=== PATIENT | female | born 1960 | race Caucasian/White ===

== ENCOUNTER 2017-01-06 19:01 | Inpatient (IN) | payer OTHER ==
[2017-01-06] VITALS (8 sets, daily range): BP systolic 131–160; BP diastolic 76–99; PULSE 72–89; RESP 16–24; O2SAT 94–98
[~2017-01-06] VITALS: Ht 160 cm; Wt 93.3 kg
--- NOTE | 2017-01-06 19:37 | ED.REPORT ---
HPI-Chest Pain 40 and Over Date of Service Jan 06, 2017 ED Provider: Donnell Alford DO Pt is a 56 year old female with a hx of a brain aneurysm, LoeysDietz syndrome ( LDS), and TIAs presenting to the ED complaining of severe sudden onset chest pain and pressure onset around 1800 tonight radiating down her right arm, then down both arms, now only down her left arm. Associated symptoms include diaphoresis, and nausea. Denies SOB, vomiting, or back pain. She states that she thought her symptoms were due to indigestion so she had some baking soda with no relief. She has a hx of a ruptured brain aneurysm at 21 years old, and currently has 2 brain aneurysms that are being monitored. Nursing Notes Stated Complaint: CHEST PAIN Chief Complaint: Chest Pain Nursing Notes Reviewed: Yes Allergies: Coded Allergies: No Known Allergies (Unverified Allergy, Unknown, 01/06/17) Scheduled Aspirin Chew (Aspirin Chew) 81 Mg Chew 81 MG PO DAILY Atorvastatin Calcium (Atorvastatin Calcium) 40 Mg Tablet 40 MG PO HS Carvedilol (Carvedilol) 3.125 Mg Tablet 3.125 MG PO BID Lamotrigine (Lamotrigine) 100 Mg Tablet 100 MG PO DAILY Lurasidone (Latuda) 80 Mg Tablet 80 MG PO DAILY General Time Seen by MD: 19:20 Chief Complaint Chest pain Hx Obtained From: Patient Arrived By: Walk-in Sudden in Onset?: Yes Onset Occurred: 1 - 4 hours ago Symptom Duration: Since onset Location: : Chest left: Chest right Quality: Painful, Pressure Radiation: : Arm left: Arm right Severity: Current: Pain level 4 out of 10 Severity: Maximum: Pain level 8 out of 10 Recent Healthcare: No recent doctor visit, No recent hospitalization Similar Sx Previous: No Past Medical History Past Medical History TIAs Bipolar Hx of brain aneurysms (one ruptured at 21 years old, 2 small ones currently) LoeysDietz syndrome (LDS) Denies: Congestive heart failure, Coronary artery disease, Hyperlipidemia, Hypertension Past Surgical History Breast augmentation with implant removal. Lithotripsy. Reports: Smoking History Never Smoker Social History Alcohol Use: "Social" Drug Use: Denies drug use Ambulatory Status Independent Review of Systems Respiratory: Denies: Shortness of breath Cardiovascular: Reports: Chest pain GI: Reports: Nausea, Denies: Vomiting Musculoskeletal: Denies: Back pain Skin: Reports Diaphoresis Complete sys rev & neg: except as marked. Physical Exam Initial Vital Signs Vital Signs (First) Date Time Temp Pulse Resp B/P Pulse Ox O2 Delivery O2 Flow Rate FiO2 01/06/17 19:20 36.6 72 22 147/97 98 01/06/17 19:30 Room Air 01/06/17 23:32 2 Initial VS: Reviewed Head / Eyes: Atraumatic, Normocephalic, PERRL ENT: Mucous membranes moist, Conjunctiva normal, No scleral icterus Neck: Supple, Non-tender, Full range of motion Extremities: Vascular intact, Neuro intact, No swelling, No tenderness Skin: Warm, Dry, No cyanosis Neurologic: Alert, Oriented, Nonfocal Psychiatric: Mood/affect normal, Behavior normal, Normal thought content General/Constitutional: Awake, Alert Distress / Hydration: Positive: Distress moderate Respiratory / Chest: Breath sounds NL, Breath sounds = bilat, No respiratory distress, No rales, No rhonchi, No wheezing, No stridor, No chest tenderness Cardiovascular: Heart rate NL, Regular rhythm, Heart sounds NL, No murmurs, Peripheral circulation NL, Pulses = bilaterally, No gross BP differential Abdomen: Soft, Non-tender, McBurney's non-tender, No guarding, No rebound, BS normoactive, No distention, No hernia, No palpable mass Interpretation & Diagnostics Lab Results Interpretation Result Diagram: 01/08/17 1823 01/08/17 0245 Test 01/06/17 19:44 Magnesium Level 2.3mg/dL (1.6-2.6) ECG Interpretation ECG Interpretation: Less than [address] elevation in lead III and AVF. No previous available for comparison. Time: 19:31 Interpreted by: ED physician Normal ECG Interpretation: Normal rate (78), Normal sinus rhythm ECG Interpretation: No ST abnormalities. Time: 22:57 Interpreted by: ED physician Normal ECG Interpretation: Normal rate (76), Normal sinus rhythm X-Ray Chest Interpretation Chest Xray Interpretation: IMPRESSION: No acute cardiopulmonary disease. Dictated by: Yunior Samayoa M.D. on 01/06/2017 at 20:23 View: Portable, 1 view Interpretation / Wet Read by: Interpret - Radiologist CT Chest Interpretation IMPRESSION: 1. Normal CT aortogram. 2. Multiple staghorn stones in left kidney. No hydronephrosis. 3. Two low density hepatic masses in the right hepatic lobe, most likely hepatic hemangiomas or cysts. 4. A 2 mm nodule in the right middle lobe. Please followup recommendation. 5. Small hiatal hernia. Fleischner Society criteria for SOLID lung nodule followup. Nodule size (mm)Low-risk patientHigh-risk [id number] follow-up neededFollow-up at 12 mo; if no change, no further follow-up>[id number] CT at 12 mo; if no change, no further follow-up needed.Initial follow-up CT at 6-12 mo, then 18-24 mo if no change. >6-8Initial follow-up CT at 6-12 mo, then 18-24 mo if no change. Initial follow-up CT at 3-6 mo, then 9-12 mo and 24 mo if no change. >8Follow-up CT at 3, 9, 24 mo. Or PET and/or biopsy.Same as for low-risk pts. Dictated by: Yunior Samayoa M.D. 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 She began experiencing sudden onset chest pain radiated to her right arm and then to her left arm which started around 6:00 this evening while at rest and was quite severe initially. She rated it at a 10 out of 10. Upon arrival to the emergency department she rated it as a 6 out of 10 and pain decreased with nitroglycerin. Morphine did not seem to help decrease her pain. After 3 doses of nitroglycerin she still had 2 out of 10 pain and 1 inch of nitroglycerin was placed along with O2 which resolved her pain. Her CT chest and abdomen showed no evidence of aortic aneurysm. Her initial troponin was negative, but her repeat troponin returned elevated. Her initial EKG did not meet criteria for STEMI, although there may be some very slight, less than 1 mm, ST elevation in the inferior leads. This had resolved after the nitroglycerin paste was placed with repeat EKG. the patient has low risk for coronary artery disease with no history of hypertension, hyperlipidemia, tobacco use, or family history of coronary artery disease. I discussed her case with cardiology who recommended we treat her as a non-STEMI. She was started on a heparin drip and also received an aspirin upon arrival. Time of Eval: 20:33 Patient Status: Condition improved Re-Evaluation/Progress Note: Pain improved to 2/10 with 1 Nitro and 2 of Morphine. Time of Eval: 21:08 Patient Status: Condition improved Re-Evaluation/Progress Note: Pt pain is still at a 2/10. She states that she has had similar pain in the past but it didn't last as long and did not seek medical care. Informed of CT results. Discussed plan for repeat Troponin. Time of Eval: 23:08 Patient Status: Condition improved Re-Evaluation/Progress Note: Discussed troponin results and plan for admission. Pt understands and agrees. Pt states that in the past when she had a breast augmentation she had continued bleeding and required a blood transfusion. Time of Eval: 23:35 Patient Status: Condition improved Re-Evaluation/Progress Note: Pt reports that her pain is gone after Nitro and Oxygen, but she still feels a bit of a 1/10 discomfort. Consultation #1: Referral / Consult Name: Jesús Weaver MD Consulted With: Cardiology Call Returned at: 22:58 Note: Admit and treat like a non-STEMI. He will see her in the morning. Consultation #2: Referral / Consult Name: Aura Valenzuela DO Consulted With: Hospitalist Call Returned at: 01:13 Inspector Eyeglass: Will see patient, Agrees with plan, Accepts admit Counseled Regarding: Diagnosis, Lab results, Need for admission Discharge & Departure Primary Impression: Non-STEMI (non-ST elevated myocardial infarction) Additional Impressions: Chest pain Chest pain type: unspecified Qualified Code: R07.9 - Chest pain, unspecified Loeys-Lavonne syndrome Disposition: ADMITTED TO HOSPITAL Discharge Condition All VS Reviewed: Yes Condition: Improved Referrals: Martin Eller MD (PCP) Scribe Attestation Portions of this note were transcribed by Nikki Saha. Dr Rocío Guy personally performed the history, physical exam and medical decision-making; I reviewed and confirmed the accuracy of the information in the transcribed note. Signed by: Cris Tamayo, 01/06/2017. copies to: Martin Eller MD, Gary R DO Jan 06, 2017 19:37 NIKKI SAHA Jan 06, 2017 19:50 Time: 19:31 Interpreted by: ED physician Normal ECG Interpretation: Normal rate (78), Normal sinus rhythm ECG Interpretation: No ST abnormalities. Time: 22:57 Interpreted by: ED physician Normal ECG Interpretation: Normal rate (76), Normal sinus rhythm X-Ray Chest Interpretation Chest Xray Interpretation: IMPRESSION: No acute cardiopulmonary disease. Dictated by: Yunior Samayoa M.D. on 01/06/2017 at 20:23 View: Portable, 1 view Interpretation / Wet Read by: Interpret - Radiologist CT Chest Interpretation IMPRESSION: 1. Normal CT aortogram. 2. Multiple staghorn stones in left kidney. No hydronephrosis. 3. Two low density hepatic masses in the right hepatic lobe, most likely hepatic hemangiomas or cysts. 4. A 2 mm nodule in the right middle lobe. Please followup recommendation. 5. Small hiatal hernia. Fleischner Society criteria for SOLID lung nodule followup. Nodule size (mm)Low-risk patientHigh-risk [id number] follow-up neededFollow-up at 12 mo; if no change, no further follow-up>[id number] CT at 12 mo; if no change, no further follow-up needed.Initial follow-up CT at 6-12 mo, then 18-24 mo if no change. >6-8Initial follow-up CT at 6-12 mo, then 18-24 mo if no change. Initial follow-up CT at 3-6 mo, then 9-12 mo and 24 mo if no change. >8Follow-up CT at 3, 9, 24 mo. Or PET and/or biopsy.Same as for low-risk pts. Dictated by: Yunior Samayoa M.D. on 01/06/2017 at 20:30 Study type: Chest CT w contrast, CT pulm angiogram Interpretation / Wet Read by: Interpret - Radiologist Re-Eval/Medical Decision Time of Eval: 20:33 Patient Status: Condition improved Re-Evaluation/Progress Note: Pain improved to 2/10 with 1 Nitro and 2 of Morphine. Time of Eval: 21:08 Patient Status: Condition improved Re-Evaluation/Progress Note: Pt pain is still at a 2/10. She states that she has had similar pain in the past but it didn't last as long and did not seek medical care. Informed of CT results. Discussed plan for repeat Troponin. Time of Eval: 23:08 Patient Status: Condition improved Re-Evaluation/Progress Note: Discussed troponin results and plan for admission. Pt understands and agrees. Pt states that in the past when she had a breast augmentation she had continued bleeding and required a blood transfusion. Time of Eval: 23:35 Patient Status: Condition improved Re-Evaluation/Progress Note: Pt reports that her pain is gone after Nitro and Oxygen, but she still feels a bit of a 1/10 discomfort. Consultation #1: Referral / Consult Name: Jesús Weaver MD Consulted With: Cardiology Call Returned at: 22:58 Note: Admit and treat like a non-STEMI. He will see her in the morning. Consultation #2: Referral / Consult Name: Aura Valenzuela DO Consulted With: Hospitalist Call Returned at: 01:13 Inspector Eyeglass: Will see patient, Agrees with plan, Accepts admit Counseled Regarding: Diagnosis, Lab results, Need for admission Discharge & Departure Primary Impression: Non-STEMI (non-ST elevated myocardial infarction) Disposition: ADMITTED TO HOSPITAL Discharge Condition All VS Reviewed: Yes Condition: Improved Referrals: Martin Eller MD (PCP) Cris Attestation Portions of this note were transcribed by Nikki Saha. I, Dr Alford personally performed the history, physical exam and medical decision-making; I reviewed and confirmed the accuracy of the information in the transcribed note. Signed by: Cris Tamayo, 01/06/2017. copies to: Martin Eller MD, Gary R DO Jan 06, 2017 19:37 NIKKI SAHA Jan 06, 2017 19:50
[2017-01-06] MEDS ORDERED: Ondansetron 2 mg/mL 2 mL Inj IVPUSH ONE (19:50)
[2017-01-06 19:56] LABS: BASOPHILS % (AUTO) 0.8 % (0-3); EOSINOPHILS % (AUTO) 3.4 % (0-5); MONOCYTES % (AUTO) 8.6 % (4-12); Mean Corpuscular Hemoglobin 29.7 pg (27.0-35.0); Mean Corpuscular Volume 92.5 fL (81-100); NEUTROPHILS % (AUTO) 61.2 % (40-74); Platelet Count 291 bil/L (150-400)
[2017-01-06 20:20] LABS: TROPONIN T < 0.010 ug/L (0.0-0.011)
--- NOTE | 2017-01-06 20:26 | DRSVH ---
PROCEDURE: X-RAY CHEST ONE VIEW, PORTABLE ([id number]) INDICATIONS: chest pain TECHNIQUE: One view of the chest was acquired. COMPARISON: None. FINDINGS: Surgical changes and devices: None. Lungs and pleura: No pleural effusions or pneumothorax. Lungs are clear. Mediastinum: Mediastinal contours appear normal. Heart size is normal. Bones and chest wall: No suspicious bony lesions. Overlying soft tissues appear unremarkable. IMPRESSION: No acute cardiopulmonary disease. Dictated by: Yunior Samayoa M.D. on 01/06/2017 at 20:23 Approved by: Yunior Samayoa M.D. on 01/06/2017 at 20:24
[2017-01-06 20:30] LABS: Magnesium 2.3 mg/dL (1.6-2.6)
--- NOTE | 2017-01-06 20:47 | DRSVH ---
PROCEDURE: CT ANG CHEST/ABD W/WO CONTRAST ([id number]) INDICATIONS: chest pain, SOB, strong fhx of dissections TECHNIQUE: Precontrast 5 mm thick sections acquired from the lung apices to the iliac crests. After the adminis tration of intravenous contrast, 3 mm thick sections again acquired from the lung apices to the iliac crests. 3-dimensional maximum intensity projection (MIP) oblique sagittal and coronal reformats wer e then acquired, and/or 3-dimensional volume rendering reformats. For radiation dose reduction, the following was used: automated exposure control. COMPARISON: [facility], CR, XR CHEST 1VW (PORTABLE), 01/06/2017, 19:29. FINDINGS: Image quality: Excellent. AORTA: Aorta is normal in caliber. No aneurysm or dissection. Minimal aortic calcification. Celiac tr unk and mesenteric arteries are patent. Renal arteries are also patent. CHEST: Lungs and pleura: There is a 2 mm nodule in the right middle lobe. No acute airspace opacities. No pleural effusions or pneumothorax. Central and peripheral airways are patent and normal in caliber. Mediastinum: Heart size is normal. No pericardial effusion. No mediastinal or hilar adenopathy by size criteria. Central pulmonary arteries are normal in size. Esophagus is normal in caliber. Small hiatal hernias. Bones and chest wall: No axillary adenopathy by size criteria. Thyroid gland is unremarkable. No s uspicious bony lesions. No vertebral body compression fractures. ABDOMEN: Vasculature: Solid organs: There are 2 low density masses in the right hepatic lobe measuring 4.3 cm and 2.4 cm. Liver and spleen are normal in size. Gallbladder is normal. Biliary system is non dilated. Pancrea s enhances normally. No adrenal nodules. There are multiple renal calculi in left kidney. No hydron ephrosis. Both kidneys are normal in size and enhancement, without hydronephrosis. Peritoneum and bowel: No free fluid or air. Bowel loops are normal in caliber and wall thickness. Nodes and vessels: No retroperitoneal or mesenteric adenopathy by size criteria. Inferior vena cava is normal in morphology. Bones: No suspicious bony lesions. No vertebral body compression fractures. Miscellaneous: No ventral hernias. IMPRESSION: 1. Normal CT aortogram. 2. Multiple staghorn stones in left kidney. No hydronephrosis. 3. Two low density hepatic masses in the right hepatic lobe, most likely hepatic hemangiomas or cysts . 4. A 2 mm nodule in the right middle lobe. Please followup recommendation. 5. Small hiatal hernia. Fleischner Society criteria for SOLID lung nodule followup. Nodule size (mm)Low-risk patientHigh-risk [id number] follow-up neededFollow-up at 12 mo; if no gale e, no further follow-up>[id number] CT at 12 mo; if no change, no further follow-up needed.Initial f ollow-up CT at 6-12 mo, then 18-24 mo if no change. >6-8Initial follow-up CT at 6-12 mo, then 18-24 mo if no change. Initial follow-up CT at 3-6 mo, then 9-12 mo and 24 mo if no change. >8Follow-up CT at 3, 9, 24 mo. Or PET and/or biopsy.Same as for low-risk pts. Dictated by: Yunior Samayoa M.D. on 01/06/2017 at 20:30 Approved by: Yunior Samayoa M.D. on 01/06/2017 at 20:45
[2017-01-06] MEDS ORDERED: LORazepam 0.5 mg Tablet PO ONE (21:20)
[2017-01-06] MEDS ORDERED: Heparin 25K Unit/500mL 0.45 NS 25,000 UNIT in IV Premix 1 EACH IV ONE (23:05)
[2017-01-06] MEDS ORDERED: Heparin 5,000 Unit/mL Inj IVPUSH ONE (23:05)
[2017-01-06] MEDS ORDERED: Nitroglycerin 2% 1 Gm Ointment TOPICAL SCH (23:10)
[2017-01-07] VITALS (23 sets, daily range): BP systolic 103–136; BP diastolic 52–96; PULSE 60–90; RESP 10–20; O2SAT 89–98
[2017-01-07] MEDS ORDERED: LURA80TA3 PO (00:05)
[2017-01-07] MEDS ORDERED: LAMO100T2 PO (00:05)
[2017-01-07] MEDS: 0.9% Sodium Chloride 1,000 ML IV SCH ×2 (00:26→14:09)
[2017-01-07] MEDS ORDERED: Alum-Mag Hydrox-Simeth 30 mL Suspension PO PRN (00:30)
[2017-01-07] MEDS ORDERED: Polyethylene Glycol (PEG) 17 Gm Powder PO PRN (00:30)
[2017-01-07] MEDS: Sodium Chloride LOK Flush 10 mL Syringe IVFLUSH SCH ×3 (00:30→16:30)
[2017-01-07] MEDS ORDERED: Atropine 1 mg/10 mL (Code) Syringe IVPUSH PRN ×2 (00:30→17:40)
[2017-01-07] MEDS ORDERED: Senna-Docusate 8.6-50 mg Tablet PO PRN (00:30)
--- NOTE | 2017-01-07 00:57 | PCM.HPMED ---
Subjective Date of Service Jan 07, 2017 Primary Provider: Admitting Physician: Aura Valenzuela DO Primary Care Physician: Martin Eller MD Attending Physician: Aura Valenzuela DO Admit Status: From the Emergency Department, [facility] Telemetry Chief Complaint: chest pain History of Present Illness: Mrs. 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 Stat CT aortogram was ordered given patient's history of LDS, which was negative for any evidence of dissection or aneurysm. Initial EKGs are questionable for inferior lead elevation, repeat EKG revealed normal sinus rhythm without any acute ST-T changes. Initial troponin was negative, but repeat revealed elevation at 0.040. Cardiology was consulted in the emergency department, and recommendations include to proceed with treatment for NSTEMI consultation in the morning. Patient was initiated on heparin drip, and was admitted for further evaluation and treatment of NSTEMI. - Hospital day 1 Patient states that evening of admission, she developed severe, sudden onset substernal chest pain without any identifiable inciting factors, she reports she was at rest. She reports history of or similar events over the recent weeks , of which, she did not seek any medical attention. She denies any history of heart disease, she is a nonsmoker, and not a diabetic. She denies any strong family history of heart disease, but notes a unique personal and family history of a Marfan variant,SMAD3, known as Loeys-Lavonne syndrome, genetic condition that has led to brain aneurysm 2 for a personal history, and she reports multiple family members have experienced early secondary to aortic rupture. She states she is followed by Dr. Holliday at the [facility] , a specialist in this condition. She reports that she is compliant with scheduled evaluations, and denies any recent abnormal findings. With the chest pain that occurred evening of admission, she also notes some associated diaphoresis, radiation to bilateral upper extremities, and nausea; she denies any associated shortness of breath, abdominal pain, lower extremity symptoms, fever, chills, nausea, vomiting, or GI symptoms such as diarrhea or constipation. She denies any recent sick contacts. At home, she states she attempted to utilize baking soda to help relieve her symptoms. In the ED, stat CT aortogram was completed given the patient's unique history, which did not reveal any acute abnormality such as evidence of dissection or aneurysm. Initial EKGs were questionable for inferior lead elevation, but repeat EKG revealed normal sinus rhythm without any acute ST-T changes. Initial troponin was negative, but repeat revealed an elevation at 0.040. ED kindly contacted cardiology, who agreed to consult on patient in the morning, with recommendations overnight to include initiation of heparin drip, and treatment protocol according to NSTEMI. Initial vitals obtained were stable, with T 36.6, T 72, R 22, BP 147/97, 98% on room air; initial labs revealed white count 7.9 with no shift, hemoglobin 12.7, platelets 291, electrolytes were within range, LFTs also within range, initial troponin negative, with repeat approximately 2 hours later revealed an elevation at 0.040; initial therapies included nitroglycerin paste, morphine sulfate IV pushes as needed, aspirin 324 mg, and initiation of cardiac heparin drip protocol. Patient was transferred to [facility] in stable condition. Review of Systems: Complete review of systems obtained, pertinent positives and negatives as noted in history of present illness Allergies Coded Allergies: No Known Allergies (Unverified Allergy, Unknown, 01/06/17) Home Medications Per ED documentation Lamotrigine 100 mg Latuda 80 mg Medication reconciliation not completed at time of admission PMH Reported per patient: Loeys Lavonne (LDS)/SMAD3 variant Brain aneurysms 2 secondary to LDS, TIAs Reported history of bipolar disorder Patient denies any personal history of diabetes, COPD, asthma, coronary artery disease, hyperlipidemia, hypertension Surgical History Patient reports multiple breast augmentations with implant placement and then subsequent implant removal secondary to complications of continued bleed Lithotripsy section 6 Family History Patient reports strong family history of Loeys-Lavonne Syndrome/SMAD3 with multiple family members experiencing early onset secondary to complications of the syndrome, including brain aneurysms and aortic aneurysms and dissections She denies any family history as far as she knows of diabetes, hyperlipidemia, hypertension, or malignancies Patient notes she was adopted, but was able to track down some of her family history and has found out above information, and she additionally reports that her children are also positive for this genetic variant Social History Hx Alcohol Use: Yes (infrequent, occasional) Hx Substance Use: No Hx Tobacco Use: No Smoking Status: Never Smoker Living Arrangement: with Family (, local) Exam Vital Signs Vital Sign - Last Date Time Temp Pulse Resp B/P Pulse Ox O2 Delivery O2 Flow Rate FiO2 01/06/17 23:32 89 21 131/82 94 Nasal Cannula 2 01/06/17 19:20 36.6 Exam General: Alert and oriented 3; pleasant woman resting supine in bed in no acute distress HEENT: Atraumatic, normocephalic, sclera anicteric, membranes moist; nasal cannula in place Neck: Full range of motion without pain Cardiac: Regular rate and rhythm at time of examination without any appreciable murmurs Respiratory: Equal and adequate airflow all nguyen without any wheeze or rhonchi ; no use of accessory muscles Chest: Atraumatic without any reproducible pain with palpation Abdomen: Soft, nontender, nondistended Extremities: No edema appreciated Skin: Warm and dry MSK: 5/5 strength 4/4 extremities at major joints of the shoulder, hip Neuro: Cranial nerves II-XII grossly intact, speech without slur, facial expressions equal and symmetric Psych: Appropriate mood, affect, and responses to questions; good insight and judgment Lab and Diagnostics Result Diagram: 01/06/17194301/06/171943 Assessment & Plan Mrs. 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 Stat CT aortogram was ordered given patient's history of LDS, which was negative for any evidence of dissection or aneurysm. Initial EKGs are questionable for inferior lead elevation, repeat EKG revealed normal sinus rhythm without any acute ST-T changes. Initial troponin was negative, but repeat revealed elevation at 0.040. Cardiology was consulted in the emergency department, and recommendations include to proceed with treatment for NSTEMI consultation in the morning. Patient was initiated on heparin drip, and was admitted for further evaluation and treatment of NSTEMI. - Hospital day 1 NSTEMI, acute, present on admission, under therapy - On admit: Initial troponin negative, repeat 0.040 - Patient states approximately 4 episodes of chest pain over recent months, of which she did not seek medical attention - History negative for smoking, diabetes, family history of coronary artery disease - Initial EKG questionable for inferior lead elevation, repeat no acute ST-T changes - Cardiology consulted: Dr. Weaver; consult order has been placed - Continue heparin drip - EKG in am + prn CP - Trend troponin - Provide additional cardiac therapies including morphine, oxygen, nitroglycerin , aspirin - Initiation of small dose beta marvin - Will evaluate for other causes of chest pain, such as endocrine aberrancy -lipid panel. hgbA1c. - ASA received on admit, continue daily - statin qhs History of SMAD3/Loeys-Lavonne Syndrome, chronic, presumed stable - Strong family history of early onset secondary to complications of aneurysms and dissections - Followed by Dr. Hernandez at [facility] - Patient reports normal imaging over recent years - Denies any history of cardiac abnormalities including of the aorta - Patient does report history of 2 brain aneurysms which were secondary to her underlying syndrome - CT aortogram at time of admission did not reveal any dissections or aneurysms - We will defer evaluation for smaller coronary aneurysms or dissections to the cardiology team - Will obtain records review from for completeness of history including recent prog notes and imaging reports History of bipolar disorder, chronic, presumed stable - We will resume home medications when reconciliation completed and when appropriate Continued monitoring for cardiac risk factors, ongoing - Patient denies any personal history or family history of coronary artery disease, does not use tobacco, and denies any history of diabetes - We will obtain additional labs and monitor glucose levels, such as uric acid and A1c PRN fever, bowel, nausea, pain DVT: Hep cardiac drip Diet: Heart; no immediate plan for interventions at this time GI: H2B IVF: NS100 Code: FULL CODE Patient status: Patient is admitted under inpatient status with expected length of stay greater than 2 midnights due to severity of presenting symptoms, risk of adverse event, and complexity of treatment plan. Pain Evaluation: Adequate Pain Control GI Prophylaxis: H2 mravin VTE Prophylaxis: Other (cardiac heparin drip) Resuscitation Status: CPR: Attempt Resuscitation Attending Statement The patient was seen and examined together with house staff on 01/06/2017 and I agree with the history, exam and plan as outlined in the note above. Yolanda Wilson DO Jan 07, 2017 00:57 Aura Valenzuela DO Jan 07, 2017 04:43
[2017-01-07] MEDS ORDERED: Heparin 25K Unit/500mL 0.45 NS 25,000 UNIT in IV Premix 1 EACH IV SCH (01:00)
--- NOTE | 2017-01-07 01:58 | NUR ---
NEW ADMIT Pt admitted to [facility] via stretcher from the ED. Pt able to ambulate to the bed, c/o CP, gave 4mg Morphine with good results. Pt on hep gtt @ 1000 units/hr and NS @ 80ml/hr. Tele SR 80's, admit complete, pt slightly anxious but resting comfortably after Morphine.
[2017-01-07] MEDS: Ondansetron 2 mg/mL 2 mL Inj IVPUSH PRN ×3 (05:15→19:55)
[2017-01-07 05:25] LABS: BASOPHILS % (AUTO) 0.5 % (0-3); EOSINOPHILS % (AUTO) 3.4 % (0-5); MONOCYTES % (AUTO) 7.7 % (4-12); Mean Corpuscular Volume 92.8 fL (81-100); NEUTROPHILS % (AUTO) 63.7 % (40-74); Platelet Count 258 bil/L (150-400)
--- NOTE | 2017-01-07 06:03 | NUR ---
NAUSEA/HEP GTT/TELE Pt c/o of nausea in the early Am, gave 8mg Zofran with good results. Pt had a PTT value of 54.8 this AM, hep gtt increased by 25 units to 1025 units/hr, VSS, tele still SR 80's with no ST change.
[2017-01-07 06:52] LABS: TROPONIN T 0.436 ug/L (0.0-0.011)
[2017-01-07] MEDS: Heparin 5,000 Unit/mL Inj IVPUSH PRN ×2 (08:30→14:09)
[2017-01-07] MEDS ORDERED: diphenhydrAMINE 25 mg Capsule PO ONE (09:30)
--- NOTE | 2017-01-07 11:03 | PCM.PNMED ---
Subjective Date of Service Jan 07, 2017 Subjective Mrs. 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 Stat CT aortogram was ordered given patient's history of LDS, which was negative for any evidence of dissection or aneurysm. Initial EKGs are questionable for inferior lead elevation, repeat EKG revealed normal sinus rhythm without any acute ST-T changes. Initial troponin was negative, but repeat revealed elevation at 0.040. Cardiology was consulted in the emergency department, and recommendations include to proceed with treatment for NSTEMI consultation in the morning. Patient was initiated on heparin drip, and was admitted for further evaluation and treatment of NSTEMI. This morning, patient notes that she has 3 out of 10 chest tightness that radiates to her left shoulder. She states that this feels much better in comparison to when she first presented to the hospital. She reports nausea but denies vomiting. She notes that the nitroglycerin has been giving her headaches. Upon further interrogation, patient reports that the chest pain yesterday started when she was sitting on chair. She has had several similar episodes in the past. However she did not seek medical care because they will resolve spontaneously. This time however she states that the chest pain was substernal radiating to her left side and accompanied by diaphoreses, nausea and shortness of breath. Overnight, patient complained of nausea. On Review of systems, patient denies fevers, chills, visual changes, abdominal pain, dysuria. Exam Vital Signs Vital Sign - Last Date Time Temp Pulse Resp B/P Pulse Ox O2 Delivery O2 Flow Rate FiO2 01/07/17 08:16 37.0 65 16 122/68 95 Room Air 01/07/17 01:01 2 Intake and Output 01/06/17 01/06/17 01/07/17 Cumulative From/Thru 15:00 23:00 07:00 01/06/17 19:20 - 01/07/17 06:48 Intake Total 1000 ml 1000 ml Output Total 0 ml 0 ml Balance 1000 ml 1000 ml Intake Oral 500 ml 500 ml IV Total 500 ml 500 ml Output Urine Total 0 ml 0 ml Exam General: Patient is lying comfortably on bed, AAOX3, not in acute distress, cooperative and pleasant. HEENT: head normocephalic and atraumatic, PERRLA, EOMI, no scleral icterus, noninjected conjunctiva Neck: neck supple, non-tender, no lymphadenopathy, trachea midline, no JVD CV: regular rate and rhythm, s1 and s2 heard, no murmur, radial pulses 2+ and equal bilaterally, no rubs murmurs or gallops, no edema Lungs: Clear to auscultation bilaterally, no wheezes, rales or rhonchi, no increased work of breathing Abdomen: normoactive bowel sounds on 4Q, soft, non-distended, non-tender to palpation, no organomegally, Skin: warm and dry, tattoos on UE bilaterally Musculoskeletal: 5/5 UE and LE strength bilaterally, full ROM bilaterally Neuro: Grossly neurologically intact, cranial nerves II through XII intact, no dyskinesia, Psych: Normal mood and affect IVs and Medications Medications Reviewed: Medications were reviewed in detail Medications High-risk medications include heparin drip Lab and Diagnostics Laboratory Tests Test 01/06/17 19:44 01/06/17 21:56 01/07/17 00:00 01/07/17 05:00 White Blood Count 7.9th/mm3 (3.8-10.1) 8.3th/mm3 (3.8-10.1) Red Blood Count 4.28mil/mm3 (3.90-5.20) 4.00mil/mm3 (3.90-5.20) Hemoglobin 12.7g/dL (12.0-15.6) 12.0g/dL (12.0-15.6) Hematocrit 39.6% (35.0-46.0) 37.1% (35.0-46.0) Mean Corpuscular Volume 92.5fL (81-100) 92.8fL (81-100) Mean Corpuscular Hemoglobin 29.7pg (27.0-35.0) 30.0pg (27.0-35.0) Mean Corpuscular Hemoglobin Concent 32.1% (32.0-37.0) 32.3% (32.0-37.0) Red Cell Distribution Width 14.2% (12.3-15.4) 14.0% (12.3-15.4) Platelet Count 291bil/L (150-400) 258bil/L (150-400) Neutrophils (%) (Auto) 61.2% (40-74) 63.7% (40-74) Lymphocytes (%) (Auto) 25.7% (14-46) 24.5% (14-46) Monocytes (%) (Auto) 8.6% (4-12) 7.7% (4-12) Eosinophils (%) (Auto) 3.4% (0-5) 3.4% (0-5) Basophils (%) (Auto) 0.8% (0-3) 0.5% (0-3) Activated Partial Thromboplast Time 28.7sec (22.8-33.0) 54.8sec (22.8-33.0) Sodium Level 141mEq/L (134-144) 137mEq/L (134-144) Potassium Level 3.9mEq/L (3.5-5.2) 3.8mEq/L (3.5-5.2) Chloride Level 102mEq/L (97-108) 101mEq/L (97-108) Carbon Dioxide Level 24mmol/L (18-29) 22mmol/L (18-29) Blood Urea Nitrogen 11mg/dL (6-24) 14mg/dL (6-24) Creatinine 0.52mg/dL (0.57-1.00) 0.51mg/dL (0.57-1.00) Estimat Glomerular Filtration Rate 176mL/min (>59) 180mL/min (>59) Glucose Level 103mg/dL (60-99) 99mg/dL (60-99) Calcium Level 8.5mg/dL (8.5-10.1) 8.0mg/dL (8.5-10.1) Magnesium Level 2.3mg/dL (1.6-2.6) Total Bilirubin 0.2mg/dL (0.0-1.2) 0.2mg/dL (0.0-1.2) Aspartate Amino Transf (AST/SGOT) 19U/L (0-50) 39U/L (0-50) Alanine Aminotransferase (ALT/SGPT) 16U/L (0-32) 15U/L (0-32) Alkaline Phosphatase 102U/L (25-150) 92U/L (25-150) Troponin T < 0.010ug/L (0.0-0.011) 0.040ug/L (0.0-0.011) 0.436ug/L (0.0-0.011) Total Protein 6.9g/dL (6.4-8.4) 6.4g/dL (6.4-8.4) Albumin 3.7g/dL (3.4-5.0) 3.4g/dL (3.4-5.0) Uric Acid 5.0mg/dL (2.6-7.2) Triglycerides Level 118mg/dL (0-149) Cholesterol Level 201mg/dL (100-199) LDL Cholesterol, Calculated 128.400mg/dL (0-99) VLDL Cholesterol 23.600mg/dL HDL Cholesterol 49mg/dL (>39) Cholesterol/HDL Ratio 4.10 (0.0-4.4) Thyroid Stimulating Hormone (TSH) 1.940uIU/mL (0.450-4.500) Free Thyroxine 1.17ng/dL (0.82-1.77) Test 01/07/17 07:05 01/07/17 12:59 Activated Partial Thromboplast Time 47.9sec (22.8-33.0) 47.0sec (22.8-33.0) Result Diagram: 01/07/17 0500 01/07/17 0500 Cardiac Echo Impressions Echo on 01/07/2017 Interpretation Summary 1) Normal left ventricular thickness, size, and systolic function (EF 55- 60%). 2) There is apical hypokinesis. 3) Normal right ventricular size and function. 4) No significant valvular abnormalities. 5) No prior Echo available for comparison. Findings consistent with ischemic heart disease. Assessment & Plan Mrs. 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 Stat CT aortogram was ordered given patient's history of LDS, which was negative for any evidence of dissection or aneurysm. Initial EKGs are questionable for inferior lead elevation, repeat EKG revealed normal sinus rhythm without any acute ST-T changes. Initial troponin was negative, but repeat revealed elevation at 0.040. Cardiology was consulted in the emergency department, and recommendations include to proceed with treatment for NSTEMI consultation in the morning. Patient was initiated on heparin drip, and was admitted for further evaluation and treatment of NSTEMI. Patient will undergo cardiac catheterization on 01/07/2017 given echo findings of apical wall motion abnormalities in addition to chest pain and elevated troponins. Non-ST segment elevation myocardial infarction, acute, present on admission, under therapy - On admit: Initial troponin negative, repeat 0.040 - Patient states approximately 4 episodes of chest pain over recent months, of which she did not seek medical attention - History negative for smoking, diabetes, family history of coronary artery disease - Initial EKG questionable for inferior lead elevation, repeat no acute ST-T changes - Cardiology consulted: Dr. Weaver; consult order has been placed - Continue heparin drip - EKG in am + prn CP - Trend troponin. Today, 01/07/17 troponin elevated to 0.436. - Provide additional cardiac therapies including morphine, oxygen, nitroglycerin , aspirin - Carvedilol 3.125 mg bid started - ASA received on admit, continue asa 81 mg daily - Atorvastatin 40 mg qhs -ECHO on 01/07/2017 showed apical wall motion abnormalities -Per cardiology, patient will proceed to cardiac catheterization this afternoon. History of SMAD3/Loeys-Lavonne Syndrome, chronic, presumed stable - Strong family history of early onset secondary to complications of aneurysms and dissections -Patient has history of TIAs with PFO - Followed by Dr. Hernandez at [facility] - Patient reports normal imaging over recent years - Denies any history of cardiac abnormalities including of the aorta - Patient does report history of 2 brain aneurysms which were secondary to her underlying syndrome - CT aortogram at time of admission did not reveal any dissections or aneurysms - We will defer evaluation for smaller coronary aneurysms or dissections to the cardiology team - Will obtain records review from for completeness of history including recent prog notes and imaging reports Possible Obstructive sleep apnea, not currently using CPAP - Recommend outpatient referral to Sleep Medicine History of bipolar disorder, chronic, presumed stable - We will resume home medications when reconciliation completed and when appropriate Continued monitoring for cardiac risk factors, ongoing - Patient denies any personal history or family history of coronary artery disease, does not use tobacco, and denies any history of diabetes - We will obtain additional labs and monitor glucose levels, such as uric acid and A1c PRN fever, bowel, nausea, pain DVT: Hep cardiac drip Diet: Heart; no immediate plan for interventions at this time GI: H2B IVF: NS100 Code: FULL CODE Patient status: Patient is admitted under inpatient status with expected length of stay greater than 2 midnights due to severity of presenting symptoms, risk of adverse event, and complexity of treatment plan. Pain Evaluation: Adequate Pain Control GI Prophylaxis: H2 marvin VTE Prophylaxis: Other (cardiac heparin drip) Resuscitation Status: CPR: Attempt Resuscitation Attending Statement The patient was seen and examined together with Dr. Wyatt on 01/07/2017 and I agree with the history, exam and plan as outlined in the note above. . Soniya Wyatt DO Jan 07, 2017 11:03 Ulices Casey MD Jan 07, 2017 18:53
[2017-01-07] MEDS ORDERED: Nitroglycerin 2% 1 Gm Ointment TOPICAL SCH (11:35)
--- NOTE | 2017-01-07 13:06 | DRSVH ---
[facility] [address] [place] [place] [address] Echocardiogram Report Name: RANDY CHILDERS Study Date: 01/07/2017 Height: 63 in Hospital Exam Location: [facility] Weight: 206 lb Gender: Female BSA: 2.0 m2 : 1960 Age: 56 yrs BP: 122/ 68 mmHg Reason For Study: NSTEMI Ordering Physician: Aravind Duval Performed By: Angelina Boone [facility] Phys[facility] Interpretation Summary 1) Normal left ventricular thickness, size, and systolic function (EF 55- 60%). 2) There is apical hypokinesis. 3) Normal right ventricular size and function. 4) No significant valvular abnormalities. 5) No prior Echo available for comparison. Findings consistent with ischemic heart disease. Procedure: A two-dimensional transthoracic echocardiogram with color flow and Doppler was performed. The study quality was technically good. There is no prior echocardiogram noted for this patient. The patient was in normal sinus rhythm during the exam. Left Ventricle: The left ventricle is normal in size. There is normal left ventricular wall thickness. The ejection fraction is estimated to be 55-60%. Left ventricular systolic function is normal. There is apical hypokinesis. Assessment of diastolic parameters suggests a pseudonormalization pattern, consistent with elevated filling pressures. Right Ventricle: The right ventricle is normal in size, thickness and function. Atria: The left atrium is moderately dilated. Right atrial size is normal. There is no Doppler evidence for an interatrial shunt. Mitral Valve: The mitral valve is normal. There is trace mitral regurgitation. Aortic Valve: The aortic valve is normal in structure and function. There is no aortic valve stenosis. No aortic regurgitation is present. Tricuspid Valve: The tricuspid valve is normal. There is trace tricuspid regurgitation. The right ventricular systolic pressure is estimated at least 28 mmHg assuming a right atrial pressure of 3 mm Hg. Pulmonic Valve: The pulmonic valve leaflets are thin and pliable; valve motion is normal. There is trace pulmonic regurgitation. Great Vessels: The aortic root is normal size. The ascending aorta is normal in size. The aortic arch is normal in size. The pulmonary artery is not well visualized, but is probably normal size. The IVC is of normal diameter and collapses greater than 50% with a sniff. This suggests a low right atrial pressure of 3 mm Hg. Pericardium/ Pleura There is no pericardial effusion. There is no pleural effusion. MMode/2D Measurements & Calculations LVIDd: 4.8 cm RA long axis LVOT diam: 2.0 cm LVIDs: 3.1 cm LA A2 area: 22.7 cm AoV Opening FS: 35.8 % LA A4 area: 17.8 cm RA area EPSS: 0.33 cm LA length (vol) Ao root diam IVSd: 0.78 cm : 12.5 cm LVPWd: 0.77 cm LA vol: 72.6 ml RA vol asc Aorta Diam LA vol index : 30.0 ml RA Ao Arch Diam (Prox : 15.3 mm2 Trans): 2.6 cm IVC diam: 1.4 cm LV zamora. diameter/BSA LV sys. diameter/BSA RVD1 (basal) RVD2 (mid): 3.7 cm (cm/m^2): 2.5 (cm/m^2): 1.6 Doppler Measurements & Calculations Ao V2 max MV E max salvatore MV E/A: 1.3 TR max salvatore : 107.3 cm/sec : 87.3 cm/sec Med Peak E' Salvatore : 250.2 cm/sec Ao max PG MV A max salvatore TR max PG : 4.6 mmHg : 68.8 cm/sec E/E' med: 9.5 : 25.0 mmHg Ao mean PG MV P1/2t: 59.0 msec Lat Peak E' Salvatore PA V2 max : 67.8 cm/sec LVOT Max Salvatore E/E' lat: 6.6 PA mean PG : 90.6 cm/sec E/e' average: 8.1 PA Accel Time KIMBERLY(I,D): 2.4 cm : 0.08 sec sev ratio MV dec time MV P1/2t max salvatore Ao V2 mean LV V1 max PG : 0.20 sec : 75.2 cm/sec MVA(P1/2t): 3.7 cm2 Ao V2 VTI: 27.1 cm LV V1 VTI KIMBERLY(V,D): 2.7 cm2 : 20.6 cm PA V2 mean KIMBERLY indexed to BSA : 51.4 cm/sec (cm^2/m^2): 1.2 Reading Physician:01:05 PM
--- NOTE | 2017-01-07 13:46 | PCM.CHPCAR ---
Consult Subjective Date of service Jan 07, 2017 Date of admit Jan 06, 2017 at 23:55 Provider Requesting Consult Requesting Provider: Yolanda Wilson DO Primary Care Physician Primary Care Physician: Martin Eller MD Chief Complaint Chest pain History of Present Illness [id number] hx Loeys-Lavonne Syndrome (LDS), brain aneurysms x2, TIAs, and a PFO who admitted with acute onset chest pain at rest. She reports she was sitting in her chair yesterday evening when she began to experience a sudden and severe substernal chest pain radiating to bilateral upper extremities. Her chest pain was accompanied with diaphoresis and nausea as well as shortness of breath and lightheadedness. She denies any preceding symptoms. She denied palpitations, syncope, or edema. She reports similar episodes happening in the last year about 3 times over the year, that they were never severe and she never sought medical help until today. She also reports an episode of sudden palpitations, lightheadedness, and shortness of breath while sitting on the couch, which happened about 4 months ago. This episode resolved spontaneously and she also did not pursue medical workup. She reports worsening dyspnea on exertion over the last 6 months, to the point that she would need to sit and rest frequently when shopping at the mall. Her history of Loeys-Lavonne Syndrome is well-documented and she sees Dr. Hernandez, a specialist in medical genetics at the [facility]. She had 2 cousins who had the same condition, who were also followed by Dr. Hernandez, who of aortic dissection. She reports that she is compliant with scheduled evaluations, and denies any recent abnormal findings. She smoked for 2 years in her teenage years, takes only occasionally, eyes any recreational drug use. Her history of LDS is on her mother's side of the family. Her father and paternal uncle both of OR in their 50s. She reports a history of TIAs and reports an echocardiogram in the past which showed a PFO. On admission, chest x-ray was negative. CT aortogram was negative for any aneurysm or dissection. Initial EKG on admission showed unspecific ST changes, but follow-up EKG showed normal sinus rhythm without any acute ST changes. Troponin was initially negative (<0.01), but began to increase after admission. She was placed on a heparin drip, aspirin, atorvastatin, and carvedilol. Today she reports fatigue, and mild ongoing chest discomfort. She denies shortness of breath, palpitations, lightheadedness, or syncope. She denies orthopnea, but reports occasional paroxysmal nocturnal dyspnea. She has a history of obstructive sleep apnea but has never worn a CPAP. PROBLEM LIST: # Acute NSTEMI. # History of Loeys-Lavonne Syndrome # History of TIAs with PFO # Dyspnea on exertion, chronic. # Obstructive sleep apnea, not currently using CPAP. Review of Systems Review of Systems Comprehensive review of systems conducted and was negative except for the pertinent positives listed above. 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 TIAs Patent foramen ovale Reported history of bipolar disorder Past Surgical History Patient reports multiple breast augmentations with implant placement and then subsequent implant removal secondary to complications of continued bleed Lithotripsy section 6 Scheduled Lamotrigine (Lamotrigine) 100 Mg Tablet 100 MG PO DAILY (Reported) Lurasidone (Latuda) 80 Mg Tablet 80 MG PO DAILY (Reported) Current Inpatient Medications Current Medications Nitroglycerin 0.4 mg Q5MIN PRN SL Last administered on 01/06/17 20:40; Admin Dose 0.4 MG; Start 01/06/17 at 19:40 Nitroglycerin 1 inch NOW TOPICAL Last administered on 01/06/17 23:31; Admin Dose 1 INCH; Start 01/06/17 at 23:10; Stop 01/07/17 at 00:38; Status DC Sodium Chloride 10 ml 10 ml PANCHO IVFLUSH; Start 01/07/17 at 00:30 Sodium Chloride 1,000 ml @ 80 mls/hr [id number] IV Last administered on 01/07/17 00:26; Admin Dose 80 MLS/HR; Start 01/07/17 at 00:26 Carvedilol 3.125 mg BID PO Last administered on 01/07/17 08:24; Admin Dose 3.125 MG; Start 01/07/17 at 08:30 Al Hydrox/Mg Hydrox/Simethicone 30 ml Q6 PRN PO; Start 01/07/17 at 00:30 Ondansetron HCl 4-8 mg prn nausea Q4 PRN IVPUSH Last administered on 01/07/17 05:15; Admin Dose 8 MG; Start 01/07/17 at 00:30 Senna 1 tablet BID PRN PO; Start 01/07/17 at 00:30 Polyethylene Glycol 17 gm DAILY PRN PO; Start 01/07/17 at 00:30 Acetaminophen 325 mg Q6 PRN PO Last administered on 01/07/17 02:56; Admin Dose 325 MG; Start 01/07/17 at 00:30; Stop 01/07/17 at 09:32; Status DC Nitroglycerin 0.4 mg Q5MIN PRN SL; Start 01/07/17 at 00:30 Morphine Sulfate 1-5 mg prn pain not relie... Q5M PRN IVPUSH Last administered on 01/07/17 10:30; Admin Dose 2 MG; Start 01/07/17 at 00:30 Atropine Sulfate 0.5 mg Q5MIN PRN IVPUSH; Start 01/07/17 at 00:30 Heparin Sodium (Porcine) Per Protocol for a... PRN PRN IVPUSH Last administered on 01/07/17 08:30; Admin Dose 1,000 UNIT; Start 01/07/17 at 01:00 Famotidine 20 mg BID PO Last administered on 01/07/17 08:24; Admin Dose 20 MG; Start 01/07/17 at 08:30 Ibuprofen 600 mg TID PRN PO Last administered on 01/07/17 03:26; Admin Dose 600 MG; Start 01/07/17 at 03:10; Stop 01/07/17 at 04:45; Status DC Aspirin 81 mg DAILY PO Last administered on 01/07/17 08:24; Admin Dose 81 MG; Start 01/07/17 at 08:30 Atorvastatin Calcium 40 mg HS PO; Start 01/07/17 at 21:00 Acetaminophen 975 mg Q6 PRN PO; Start 01/07/17 at 09:30 Metoclopramide HCl 5 mg Q4H PRN PO; Start 01/07/17 at 09:30 Nitroglycerin 1 inch NOW TOPICAL; Start 01/07/17 at 11:35 Allergies: Coded Allergies: No Known Allergies (Unverified Allergy, Unknown, 01/06/17) Family History Family History Patient reports strong family history of Loeys-Lavonne Syndrome/SMAD3 with multiple family members experiencing early onset secondary to complications of the syndrome, including brain aneurysms and aortic aneurysms and dissections She denies any family history as far as she knows of diabetes, hyperlipidemia, hypertension, or malignancies Patient notes she was adopted, but was able to track down some of her family history and has found out above information, and she additionally reports that her children are also positive for this genetic variant Social History Hx Alcohol Use: Yes (infrequent, occasional)Hx Substance Use: NoHx Tobacco Use : No Smoking Status: Never Smoker Living Arrangement: with Family (, local) Exam Vital Signs Vital Sign - Last Date Time Temp Pulse Resp B/P Pulse Ox O2 Delivery O2 Flow Rate FiO2 01/07/17 12:25 36.8 66 16 111/72 96 Room Air 01/07/17 01:01 2 Intake and Output 01/06/17 01/06/17 01/07/17 Cumulative From/Thru 15:00 23:00 07:00 01/06/17 19:20 - 01/07/17 06:48 Intake Total 1000 ml 1000 ml Output Total 0 ml 0 ml Balance 1000 ml 1000 ml Intake Oral 500 ml 500 ml IV Total 500 ml 500 ml Output Urine Total 0 ml 0 ml Objective General appearance: No apparent distress, well-nourished, pleasant, cooperative HEET: Normocephalic atraumatic, no scleral icterus, tongue midline, mucous membranes moist Neck: supple Cardiovascular: RRR, normal S1 and normal S2, no murmurs/ rubs/gallops, PMI nondisplaced, no JVD, no peripheral edema Respiratory: Good aeration, clear to auscultation bilaterally Abdomen: Soft, nontender, nondistended, + bowel sounds Neuro: Alert, no facial droop, tongue midline Psych: Appropriate affect Skin: No rashes on face, neck, and lower extremities Lab and Diagnostics Result Diagram: 01/07/17 0500 01/07/17 0500 Additional Diagnostics: Echo 01/07/17 1) Normal left ventricular thickness, size, and systolic function (EF 55- 60%). 2) There is apical hypokinesis. 3) Normal right ventricular size and function. 4) No significant valvular abnormalities. 5) No prior Echo available for comparison. Findings consistent with ischemic heart disease. Assessment & Plan Assessment # Acute NSTEMI: Pt presents with classic anginal pain, no significant ST changes , and increasing troponin. Her troponin appears to be trending up. Echo showed apical wall motion abnormality. Considering coronary artery thromboembolic disease vs coronary artery dissection given history of Ueexa-[id number]-[id number]. Given the echocardiogram findings, we will proceed to cardiac catheterization. - Cardiac cath ordered to be done with Dr. Grimes. Patient agrees after discussing risk vs benefits vs alternatives - Continue aspirin 81 mg - Continue atorvastatin 40 mg - Continue carvedilol 3.125 mg BID - Heparin gtt - Nitro paste for ongoing chest pain - Monitor on telemetry # Obstructive sleep apnea, not currently using CPAP: Discussed with patient, who appears open to trying a CPAP - Recommend outpatient referral to Sleep Medicine # History of Loeys-Lavonne Syndrome: Primary team obtaining records from [facility]. # History of TIAs with PFO # Dyspnea on exertion, chronic. Pain Evaluation: Adequate Pain Control VTE Prophylaxis: Other (cardiac heparin drip) Resuscitation Status: CPR: Attempt Resuscitation Attending Statement ATTENDING ADDENDUM: I saw, examined, and evaluated the patient with Dr. Sanju El on 01/07/2017 and agree with the note as above along with my edits. Sanju El Jan 07, 2017 13:01 Aravind Duval MD Jan 07, 2017 14:15
[2017-01-07] MEDS ORDERED: Heparin 1,000 Unit/mL 10 mL Inj ONE (15:07)
[2017-01-07] MEDS ORDERED: Heparin 10,000 Unit/1,000 mL NS Premix IV ONE ×2 (15:07→15:09)
[2017-01-07] MEDS ORDERED: Heparin 1,000 Units/500 mL NS Premix IV ONE (15:07)
[2017-01-07] MEDS ORDERED: Nitroglycerin 50,000 mcg/250 mL D5W Premix IV ONE (15:11)
[2017-01-07] MEDS ORDERED: Ondansetron 2 mg/mL 2 mL Inj ONE (15:19)
[2017-01-07] MEDS ORDERED: fentaNYL-PF 50 mCg/mL 2 mL Inj ONE ×2 (15:25→16:35)
--- NOTE | 2017-01-07 16:06 | NUR ---
Social Work: Attempted Assessment D: Per EMR review, pt is a 56 year old female admitted for NSTEMI. Pt is [employer] insurance. PCP is Martin Eller MD. NOK is Ulices Palden, spouse. Advanced directives not completed. Readmit score not entered at this time. MANAGER FOOD BEVERAGE attempted to meet with the patient at bedside to complete assessment. 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 No family present in the room at this time. A: Pt who lives in [place] with her spouse. P: MANAGER FOOD BEVERAGE to attempt to complete assessment with the patient tomorrow to assess for discharge needs. MANAGER FOOD BEVERAGE to continue to follow. TEOFILO Vallecillo
[2017-01-07] MEDS ORDERED: 0.9% Sodium Chloride 400 ML (4 HRS) IV ONE (17:40)
[2017-01-07] MEDS ORDERED: 0.9% Sodium Chloride 250 ML BOLUS IV PRN (17:40)
[2017-01-07] MEDS ORDERED: Sodium Chloride LOK Flush 10 mL Syringe IVFLUSH PRN (17:40)
--- NOTE | 2017-01-07 18:28 | CS94 ---
[address] [address] DIAGNOSTIC CARDIAC CATHETERIZATION PATIENT: RANDY CHILDERS : [birth year] MR# : [id number] ADMIT: 01/06/2017 JOB ID: [id number] PROCEDURE NOTE -- CARDIAC CATHETERIZATION LABORATORY: SERVICE DATE: , January 07, 2017 CLINICAL NURSING COORDINATOR: Nick Grimes MD PROCEDURES: 1. Coronary Angiogram -- Urgent. 2. Left Heart Catheterization (LHC) -- Pressure measurement; and Left Ventriculogram (LVG). CLINICAL DETAILS: This 56-year-old woman presents to the Cardiac Catheterization Laboratory after she was admitted to the hospital last night because of an episode of severe (8/10 intensity) sudden onset retrosternal chest pressure radiating across the chest, and to the arms; and accompanied by diaphoresis and nausea. The chest pain was severe for several hours; lasted 11 hours total; and then nearly cleared. She still has mild ongoing 1-2/10 chest discomfort remaining. ECG initially raised the question of inferior ST elevation with subtle mild ST elevation less than 1 mm; and possible hint of reciprocal inferior ST sagging in aVL. Troponins were initially normal; then rolan to 0.4. Echocardiogram shows normal global LV function with a possible subtle apical region of hypokinesis. The RV appears generous and raised a question of PE; but D-dimer was negative. CT angiogram showed no aortic dissection or aortic aneurysm; and on a study not directed towards PE, there was no obvious PE. Note the patient has Loeys-Lavonne Syndrome with a strong family history of aortic pathology requiring surgery. She had a neurologic event in the past("TIA" with expressive aphasia); and two very small several millimeter size cerebral aneurysms were found. The current clinical diagnosis is ACS with NSTEMI; but features appear somewhat atypical. PROCEDURAL DETAILS: I evaluated her prior to the procedure and discussed the findings, impressions, and management considerations with her and her including the recommendation following Cardiology consultation to proceed with urgent cardiac catheterization for definitive diagnosis, and to guide treatment options including medical therapy, or percutaneous coronary intervention (PCI) or coronary bypass surgery if needed. We discussed the procedure including possible risks and complications. We discussed bleeding, infection, blood clot; as well as injury to nerve, artery, vein or kidney; and also arrhythmia, drug reaction; or others. We discussed treatment as needed including surgery, pacemaker, transfusion. We discussed more serious complications that are possible including stroke, heart attack, cardiac arrest, , and emergency surgery including transfer for coronary bypass surgery. We discussed the concern for high risk nature of an invasive procedure given her underlying vascular syndrome; and the possible increased risk of arterial complications. After questions and discussion, she signed informed consent to proceed. She was brought to the Catheterization Laboratory NPO where she was prepped sterilely and draped. CORONARY ANGIOGRAM: Arterial access was obtained without difficulty in the right common femoral artery using fluoroscopic localization over the femoral head; and lidocaine local anesthesia; and modified Seldinger technique to insert a 10 cm, 6-Martiniquais side-arm sheath. Catheters were advanced and exchanged over a long 0.035 inch J tipped guidewire The wire tip and catheter were observed carefully at all times in the vasculature. The left coronary artery was imaged with a 6-Martiniquais JL-4 diagnostic catheter. The right coronary angiogram was engaged with a 6-Martiniquais JR-4 catheter. LEFT HEART CATHETERIZATION: A 6-Martiniquais pigtail catheter was advanced across the aortic valve into the left ventricle where pressure measurements were made. A left ventriculogram was obtained in the 30 degree LOWERY projection using 36 cc of contrast injected at 14 cc/second. Procedure without difficulty. Patient tolerated procedure well. No complications. A side-arm sheath angiogram showed adequate access in the right common femoral artery. Arterial hemostasis was obtained without difficulty using manual pressure to avoid a closure device given her potential vascular abnormalities. She was transferred from the Catheterization Laboratory in stable condition to the [facility] unit for ongoing care including by the primary Hospitalist team. I discussed the findings, impressions, and management considerations with the patient and her ; as well as with Cardiology (Dr. Duval); and with the Hospitalist team (Dr. El). FINDINGS: 1. LMCA: Normal. The left main coronary artery is a large vessel with no angiographically evident disease. 2. LAD: Normal. The left anterior descending coronary artery is a large transapical vessel with no angiographic obstruction and no evident atherosclerotic plaquing. The Mid LAD gives a moderate-sized Diagonal. 3. LCX: Normal. The left circumflex coronary artery has no angiographic obstruction or evident atherosclerotic plaquing. 4. RCA: Dominant. No evident angiographic obstruction (see comments below). The right coronary artery is a moderate-size vessel with small PDA and small to moderate-sized RPLB. Overall the right coronary artery has no angiographic obstructive disease; or atherosclerotic obstruction(CARLOS MANUEL-3 flow). 5. LHC: LVED 23 mmHg; and no systolic gradient on pullback across the aortic valve. 6. LVG: Left ventriculogram shows overall normal to vigorous LV global systolic function. There is a small unusual appearing focal inferoapical dyskinetic segment. No MR. CONCLUSIONS: 1. Coronary Angiogram -- Normal coronary arteries (see comments below). 2. Elevated LVED. 3. 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 RECOMMENDATIONS: 1. 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 I had several other considerations including: Note also in one view, the PDA appears thready and I considered the possibility of a healing dissection; but this is this is not definite or convincing(and consider also that PDA obstruction might cause more extensive inferior wall motion defect). Note also that coronary dissection may not be a typical manifestation of Loeys-Lavonne vasculopathy. Recanalized and ruptured plaque appears doubtful in the absence of any angiographically visible plaque; and coronary vasospasm is not excluded(note absence of overt ARPIT during severe CP). 2. OMT -- Optimal Medical Therapy including: Consider ASA; and consider statin; and calcium channel marvin; long acting nitrates; and Cardiology follow -up including Echo tfor resolution of her wall motion defect. JONE
--- NOTE | 2017-01-07 18:44 | NUR ---
[facility] 0732 - Paged Dr. Waterman as she was wanting Motrin for her headache, coffee, and this nurse wanted to make sure it was okay for her to eat her ordered heart healthy diet. Dr. Waterman said that this patient was under the care of the R1 resident and to call her. 0751 - Paged Dr. Wyatt, the R1 Resident, at this time. 08 - Found Dr. Wyatt in the hallway and spoke to her about the patient. She said to hold the food and coffee for now as the patient needed a cardiology consult and the plan/procedures for the day were unknown. She said she would try to order some Motrin for the patient. She went into the room to assess the patient. She again said she would order the Motrin when she got out of the room. 928 - Had not seen any new pain medication orders. Spoke to Dr. Waterman who ordered Reglan, 975 mg of Tylenol, and a one time dose of Benadryl. He did not want to order Motrin as she was on a Heparin drip and Aspirin. The patient refused these newly ordered medications saying that the Tylenol would not help her headache. She had also been complaining of continued from last night low-grade chest "discomfort." Gave her 2 mg of Morphine which took all her pain away. 09 - Discussed her care with Dr. Casey and the rest of the multidisciplinary care team during morning rounds. Informed Dr. Casey that a couple of her home medications did not get ordered. Found the patient sleeping at this time. 1140 - The Director Of Integrated Marketing Resident ordered Nitro paste for her chest discomfort. She refused it as she said the Nitro she took yesterday gave her headaches. 1254 - Paged Dr. Duval who called back. Asked what the plan was and if she could eat. He said he was reading her Echocardiogram and would then come talk to the patient. 1321 - Dr. Duval saw her and said she needed to go the cardiac labor relations director today and to keep her NPO. He said that Dr. Grimes would be coming by shortly. 1400 - Dr. Grimes came to assess her and gave verbal orders for an EKG and D-dimer which were ordered. Called the research laboratory technician and lab to let them know. 1515 - She left to go to the labor relations director. She was very anxious. The labor relations director team was notified. 1731 - She returned to [facility] 2030. SILVIO Cain from [facility] stayed with her until 1899 to recover her in the room. Right groin site clean, dry, and intact. 1899 - retail shift leader given report and notified by Payton to do Q1 hour checks until 2099. She has not had any chest pain since coming back. Care continues.
--- NOTE | 2017-01-07 19:08 | NUR ---
[facility] Patient transferred by bed from [facility] to room 3031 at 1730. in room. Post heart cath groin recovery completed by [facility] staff until 1900. Right groin without bleeding or hematoma. Pedal pulse present. Void pr bed brown while in [facility]. Ate dinner in room. Receiving RN updated.
[2017-01-07] MEDS: HYDROcodone-APAP 5-325 mg Tablet PO PRN (22:09)
[2017-01-08] VITALS (9 sets, daily range): BP systolic 101–118; BP diastolic 57–77; PULSE 71–89; RESP 16–18; O2SAT 93–97
[2017-01-08] MEDS: lamoTRIgine 100 mg Tablet PO SCH ×2 (01:34→20:30)
[2017-01-08] MEDS: Sodium Chloride LOK Flush 10 mL Syringe IVFLUSH SCH ×3 (01:34→17:29)
[2017-01-08] MEDS: 0.9% Sodium Chloride 1,000 ML IV SCH ×2 (01:35→13:56)
[2017-01-08 02:58] LABS: BASOPHILS % (AUTO) 0.1 % (0-3); EOSINOPHILS % (AUTO) 2.2 % (0-5); MONOCYTES % (AUTO) 10.1 % (4-12); Mean Corpuscular Volume 97.3 fL (81-100); NEUTROPHILS % (AUTO) 81.2 % (40-74); Platelet Count 124 bil/L (150-400)
[2017-01-08 04:05] LABS: TROPONIN T 0.042 ug/L (0.0-0.011)
[2017-01-08] MEDS: HYDROcodone-APAP 5-325 mg Tablet PO PRN ×4 (06:53→20:31)
--- NOTE | 2017-01-08 07:14 | NUR ---
Groin/Pain Right groin site soft , with no hematoma noted. Pt c/o pain in groin area that increases with activity, site has remained soft with pulses palpable. Pt also c/o of headache and requesting Motrin. MD notified and one time order for 400 mg given and effective until 644 and pt again requesting Motrin. notified and awaiting orders day RN notified. VSS and Tele SR
[2017-01-08] MEDS: Ondansetron 2 mg/mL 2 mL Inj IVPUSH PRN ×2 (08:21→12:15)
--- NOTE | 2017-01-08 09:48 | PCM.DIMED ---
Soniya Wyatt DO 01/08/17 0948: Discharge Instructions Date of Service Jan 09, 2017 Dates of Hospitalization Jan 06, 2017 at 23:55 Discharge Diagnosis Discharge Diagnosis NSTEMI, acute, present on admission, resolved Stress cardiomyopathy, acute, present on admission, ongoing incidental finding on CT of Multiple staghorn stones in left kidney, present on admission, ongoing incidental finding on CT of Hepatic masses in the right hepatic lobe, present on admission, ongoing incidental finding on CT of Nodule in the right middle lobe, present on admission, ongoing History of SMAD3/Loeys-Lavonne Syndrome, chronic, presumed stable History of bipolar disorder, chronic, presumed stable Medication Instructions Additional med instructions We have started you on new medications which include aspirin 81 mg daily, atorvastatin 40 mg once a day and carvedilol 3.125 mg twice a day Diet Discharge Diet: Diabetic Activity Discharge Activity: No restrictions Call your provider Call your provider for: Fever or Chills, Shortness of breath, Bleeding, Chest pain, Vomitting, Excessive diarrhea, Weakness (unilateral) Patient Instructions Patient Instructions When you presented to the hospital, you were having chest pain, excessive sweating and nausea. Although your repeat EKG looked normal, some of your heart enzymes were elevated so we consulted cardiology and we proceeded by treating you with morphine, nitro and heparin. You had an ultrasound of your heart, also known as an echocardiogram which showed that there was some defect in the motion of the one of the mcdermott of the heart, which we believe is likely due to stress cardiomyopathy. You also had a cardiac catheterization performed on , which also showed similar findings. Stress cardiomyopathy can be a result of intense emotional or physical stress, which can cause some weakness of the heart muscle. This usually resolves over time. As a result, we would like for you to follow up with cardiology in about a week and get a repeat ultrasound of your heart to assess for improvement. In addition, we are sending you home with new medications for your heart including carvedilol 3.125 mg two times daily, atorvastatin 40 mg, and aspirin 81 mg. We are also recommending Cardiac rehabilitation program. Continue to follow up with [facility] at [facility] and your Neurologist in [place] and make sure to discuss your use of aspirin 81 mg with them. We also talked about the fact that you are pre-diabetic with a HgbA1C of 5.7 Please make dietary changes with reduction in carbohydrate intake as well as exercise regularly as tolerated. Lastly, we found some incidental findings on the CT scan which include: Multiple staghorn stones in left kidney, Hepatic masses in the right hepatic lobe, and Nodule in the right middle lobe of the lung. Please follow-up with your primary care doctor about these findings. You can also discuss your migraine headaches with your doctor. Follow-up plan We will schedule a follow-up with Cardiology in about a week. They will order for another ultrasound of your heart. Continue to follow up with [facility] at [facility] and your Neurologist in [place] and make sure to discuss your use of aspirin 81 mg with them. Lastly, Please follow-up with your primary care doctor to discuss your migraine headaches, in addition to the incidental findings on the CT scan which include: Multiple staghorn stones in left kidney, Hepatic masses in the right hepatic lobe, and Nodule in the right middle lobe of the lung. Follow-up Provider: Martin Eller MD Follow-up with PCP in: 1 week Provider: PERI AGUILAR [facility] Follow-up in: 1 week Cardiac Rehab: 1 week Ulices Casey MD 01/09/17 1639: Discharge Instructions Attending's Statement The patient was seen and examined together with Dr. Wyatt on 01/09/2017 and I agree with the history, exam and plan as outlined in the note above. . Soniya Wyatt DO Jan 08, 2017 09:48 Ulices Casey MD Jan 09, 2017 16:39 severe MARTINEZ when given NTG this admission. Consider Statin--though doubtful her CV risk is high otherwise. Consider adding CCB stepwise. Soniya Wyatt DO Jan 08, 2017 09:48
[2017-01-08] MEDS ORDERED: ASPI81TA3 PO (10:19)
[2017-01-08] MEDS ORDERED: CARV3.122 PO (10:19)
[2017-01-08] MEDS ORDERED: ATOR40TA69 PO (10:19)
--- NOTE | 2017-01-08 11:47 | PROG NOTE ---
[address] [address] PROGRESS NOTE PATIENT: RANDY CHILDERS : [birth year] MR# : [id number] ADMIT: 01/06/2017 JOB ID: [id number] CARDIOLOGY CONSULTATION PROGRESS NOTE -- FOLLOW-UP INPATIENT VISIT: DATE OF EVALUATION: Sunday, January 08, 2017. CONSULTING PHYSICIAN: Cardiology -- Nick Grimes MD. PROBLEMS: 1. Acute coronary syndrome (ACS): a. Severe prolonged chest pain; progressively elevated troponin; and abnormal ECG with nondiagnostic subtle transient inferior ST elevation. b. Stress cardiomyopathy -- clinical diagnosis of variant of stress cardiomyopathy syndrome likely. 2. Loey-Lavonne Syndrome: a. Two known very small cerebral aneurysms (2013). b. Strong family history of vascular involvement. INTERIM SUMMARY AND HOSPITAL COURSE: Hospital Day Three. I am glad to see this 56-year-old woman on Cardiology rounds today, Sunday, January 08, 2017. She was seen in consultation by Cardiology yesterday. Then, I did a catheterization on her yesterday afternoon. Today, she is clinically stable, and she tells me her chest discomfort has resolved. She did well overnight post catheterization with hydration. She began to re-ambulate today but she is having some discomfort at the catheterization site. OBJECTIVE: EXAMINATION: Vital signs stable with blood pressure 118/75 and heart rate 75, regular. Extremities: Right lower extremity -- the catheterization site is fully intact without ecchymosis, hematoma, pulsatile mass, or bruit. The distal perfusion and dorsalis pedis pulse is fully intact. Note, she does complain of exquisite tenderness to the lightest touch at the catheterization site and over the right lower quadrant above the catheterization site and towards the left flank. Overall, however, the examination is otherwise entirely reassuring. Right flank not tender or ecchymosis. ECG -- Not outside normal limits this morning. CATHETERIZATION: See catheterization report. Overall, she has intact coronary arteries with no obstructive lesions; and virtually no visible atherosclerotic plaquing. Overall, very reassuring. The left ventriculogram shows a focal area of inferoapical dyskinesis/bulging in systole which may be consistent with a variant stress cardiomyopathy. The PDA is thready, and I considered a resolving dissection; but this is not at all convincing including the artery looks not much different from the adjacent RPLB. ASSESSMENT: I discussed the findings, impressions and management considerations at this point with her ( not present this morning); and with the Hospitalist team (Dr. Casey; and Dr. Wyatt) includin. "Acute Coronary Syndrome" with atypical features and no definite coronary lesions; Overall, she is clinically stable, improved; and now chest pain free. I discussed with her that there is no one pathognomonic finding; but the overall clinical scenario is most consistent with a variant stress cardiomyopathy with a wall motion defect in the absence of coronary lesions. I did also consider: Ruptured plaque -- no evidence of this. Coronary Vasospasm -- doubtful; but not excluded. Coronary dissection -- Suspicion raised by the appearance of the PDA; but this is not at all definite; and PDA lesion might include also wall motion defect of the inferior wall (and the inferior wall is very vigorous except at the inferoapical aspect). Also note from a brief literature review it is not clear that coronary dissection has been reported in Loeys-Lavonne syndrome, which more commonly involves the aorta, and other larger arteries. RECOMMENDATIONS: 1. Post catheterization -- Plan re-ambulation today; and initiation of medical therapy, and consider discharge in a.m. Regarding her discomfort at the catheterization site, and surrounding areas, which concerns her, note she INCOMPLETE DICTATION: Dictation ends here. Continuation of the portion of the nursing admin that failed, and not transcribed: ...is very sensitive to any touch; and significant abnormality at the site appears not likely. If concern remains, then consider US or CT. 2. We discussed and I recommended to her: FU with PCP with in days; and with Cardiology with in 7-10 days to include follow-up Echo. FU with [facility] at [facility]. FU with Neurologist--She has appointment with her Neurologist in [place] scheduled; and note she takes ASA for her "TIA" that led to finding cerebral aneurysms. Strong recommendation for Cardiac Rehab Program. Exercise RX to include moderate, progressive, symptom-limited return to usual activities. FU for her other symptoms which include: FOSTER--Note one year Hx of moderately severe FOSTER limiting her in the grocery store ; but recently she started using a treadmill where she "pushes through the SOB". CP--Note she had 4 other episodes similar to the current(but less severe) in the past year(all at rest; and no effort related CP). Consider senior living ECG event monitoring. 3. OMT--Optimal Medical Therapy as we discussed, including: ASA--81 mg QD if not contraindicated by her cerebral aneurysms. NTG--Long acting; starting with IMDUR 30 mg QD; noting she is concerned by severe MARTINEZ when given NTG this admission. Consider Statin--though doubtful her CV risk is high otherwise. Consider adding CCB stepwise. MD WILL. JONE
--- NOTE | 2017-01-08 12:27 | DRSVH ---
PROCEDURE: CT ANGIO ABDOMEN PELVIS INDICATIONS: 56 year-old female status post right groin catheterization with pain presents for evalua tion of possible hematoma. TECHNIQUE: Non-contrast 3 mm thick sections acquired from the diaphragm to the symphysis. After the administrat ion of intravenous contrast, 3 mm thick sections acquired from the diaphragm to the symphysis during the arterial and venous phases. 3-dimensional maximum intensity projection (MIP) reformats were acqui red of the arterial phase images, and/or 3-dimensional volume rendering reformats. For radiation dos e reduction, the following was used: automated exposure control. COMPARISON: [facility], CT, CT ANGIO CHEST ABD, 01/06/2017, 20:08. FINDINGS: Image quality: Excellent. Lung bases: There is minimal dependent atelectasis. Heart is normal in size. There is a small hiata l hernia. Solid organs: There are 2 lobulated cysts redemonstrated within the right hepatic lobe as well as add itional small low-density foci which are too small to characterize but likely represent cysts. The s pleen is normal in size. Gallbladder demonstrates intraluminal high density consistent with vicariou s excretion of contrast from the prior CT. No gallbladder wall thickening. Biliary system is non dil ated. Pancreas enhances normally. No adrenal nodules. Kidneys demonstrate no hydronephrosis. Desire us left renal stones are redemonstrated with clustered calcifications in the medulla suggestive of me dullary nephrocalcinosis. Peritoneum and bowel: Bowel loops are normal in caliber and wall thickness. There is colonic diverti culosis without acute diverticulitis. No intraperitoneal free air. There is trace intraperitoneal f luid within the pelvis likely originating from the retroperitoneum. Nodes and vessels: No retroperitoneal or mesenteric adenopathy by size criteria. Inferior vena cava is normal in morphology. The abdominal aorta and its branch vessels appear widely patent. The common iliac, external iliac, and internal iliac arteries appear patent bilaterally. The visual ized common femoral arteries and proximal superficial femoral arteries also appear patent. No defini te pseudoaneurysm identified. No definite evidence of active arterial extravasation. Bones: No suspicious bony lesions. No vertebral body compression fractures. Miscellaneous: There is a moderate to large right retroperitoneal hematoma extending from the inguina l region into the pelvis and lower abdomen within the posterior pararenal space. No definite evidenc e of active arterial extravasation. No ventral hernias. IMPRESSION: 1. Moderate to large right retroperitoneal hematoma extending from the inguinal region into the pelv is and lower abdomen. No definite evidence of active arterial extravasation or pseudoaneurysm. Find ings were discussed with Dr. Wyatt on 01/08/17 at 12:20 PM. 2. Extensive left nephrolithiasis redemonstrated without obstructive uropathy. Dictated by: Abdirizak Marques M.D. on 01/08/2017 at 12:12 Approved by: Abdirizak Marques M.D. on 01/08/2017 at 12:25
[2017-01-08] MEDS: Isosorbide Mononitrate 30 mg ER24 Tablet PO SCH (13:26)
--- NOTE | 2017-01-08 17:46 | NUR ---
Social Work Note: Attempted Initial Assessment ELECTRIC METER REPAIRER HELPER attempted to meet with pt and pt at bedside to complete initial assessment. Pt requested ELECTRIC METER REPAIRER HELPER return tomorrow morning as she was not feeling well enough to have a conversation at this time. ELECTRIC METER REPAIRER HELPER to continue to follow. TEOFILO Quijano
--- NOTE | 2017-01-08 19:29 | NUR ---
Pain/Nausea/Activity Patient a/o x 4, c/o severe headache, nausea and right groin/abd pain with palpation. Zofran x 2 given for nausea and pain meds given with moderate effect. Right groin soft with min bruising, no hematoma noted, bilat pedal pulses palpable. CT scan and ultrasound done this shift per MD orders. Patient oob amb indep in room, steady gait. VSS, tele SR.
--- NOTE | 2017-01-08 21:11 | PCM.PNMED ---
Subjective Date of Service Jan 08, 2017 Subjective Mrs. 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 Stat CT aortogram was ordered given patient's history of LDS, which was negative for any evidence of dissection or aneurysm. Initial EKGs are questionable for inferior lead elevation, repeat EKG revealed normal sinus rhythm without any acute ST-T changes. Initial troponin was negative, but repeat revealed elevation at 0.040. Cardiology was consulted in the emergency department, and recommendations include to proceed with treatment for NSTEMI consultation in the morning. Patient was initiated on heparin drip, and was admitted for further evaluation and treatment of NSTEMI. This morning, patient states that she was having some pain in her groin on the right side where the cardiac catheterization was done. She states that it is so painful for her to walk. In addition, she notes that she has been having a migraine. We ordered a CT of the abdomen and pelvis and she was found to have a moderate to large right retroperitoneal hematoma with no evidence of active arterial extravasation or pseudoaneurysms. Overnight, she complained of right groin pain. On review of systems, patient denied dizziness, confusion, chest pain, shortness of breath, abdominal pain, nausea, vomiting, constipation, diarrhea and dysuria. Exam Vital Signs Vital Sign - Last Date Time Temp Pulse Resp B/P Pulse Ox O2 Delivery O2 Flow Rate FiO2 01/08/17 05:39 75 01/08/17 03:36 36.7 16 101/66 94 Room Air 01/07/17 19:00 2.00 Intake and Output 01/07/17 01/07/17 01/08/17 Cumulative From/Thru 15:00 23:00 07:00 01/06/17 19:20 - 01/08/17 06:51 Intake Total 849 ml 740 ml 2589 ml Output Total 200 ml 200 ml Balance 849 ml 540 ml 2389 ml Intake Oral 60 ml 740 ml 1300 ml IV Total 789 ml 1289 ml Output Urine Total 200 ml 200 ml # Voids 2 3 5 Exam General: Patient is lying comfortably on bed, AAOX3, patient in mild distress from her headache and groin pain HEENT: head normocephalic and atraumatic, PERRLA, EOMI, no scleral icterus, noninjected conjunctiva Neck: neck supple, non-tender, no lymphadenopathy, trachea midline, no JVD CV: regular rate and rhythm, s1 and s2 heard, no murmur, radial pulses 2+ and equal bilaterally, no rubs murmurs or gallops, no edema Lungs: Clear to auscultation bilaterally, no wheezes, rales or rhonchi, no increased work of breathing Abdomen: normoactive bowel sounds on 4Q, soft, non-distended, non-tender to palpation, no organomegally, Skin: warm and dry, tattoos on UE bilaterally, right groin site, no visible evidence of echymossis or hematoma or bleeding Musculoskeletal: 5/5 UE and LE strength bilaterally, full ROM bilaterally Neuro: Grossly neurologically intact, cranial nerves II through XII intact, no dyskinesia, Psych: Normal mood and affect IVs and Medications Medications Reviewed: Medications were reviewed in detail Medications High-risk medications include [facility] Laboratory Tests Test 01/08/17 02:45 01/08/17 12:25 01/08/17 15:09 01/08/17 16:40 White Blood Count 10.6th/mm3 (3.8-10.1) Red Blood Count 3.70mil/mm3 (3.90-5.20) Hemoglobin 12.2g/dL (12.0-15.6) 10.0g/dL (12.0-15.6) 10.1g/dL (12.0-15.6) 10.5g/dL (12.0-15.6) Hematocrit 36.0% (35.0-46.0) 32.0% (35.0-46.0) 32.3% (35.0-46.0) 33.4% (35.0-46.0) Mean Corpuscular Volume 97.3fL (81-100) Mean Corpuscular Hemoglobin 33.0pg (27.0-35.0) Mean Corpuscular Hemoglobin Concent 33.9% (32.0-37.0) Red Cell Distribution Width 12.6% (12.3-15.4) Platelet Count 124bil/L (150-400) Neutrophils (%) (Auto) 81.2% (40-74) Lymphocytes (%) (Auto) 6.2% (14-46) Monocytes (%) (Auto) 10.1% (4-12) Eosinophils (%) (Auto) 2.2% (0-5) Basophils (%) (Auto) 0.1% (0-3) Sodium Level 136mEq/L (134-144) Potassium Level 3.9mEq/L (3.5-5.2) Chloride Level 101mEq/L (97-108) Carbon Dioxide Level 21mmol/L (18-29) Blood Urea Nitrogen 15mg/dL (6-24) Creatinine 0.38mg/dL (0.57-1.00) Estimat Glomerular Filtration Rate 253mL/min (>59) Glucose Level 131mg/dL (60-99) Calcium Level 8.2mg/dL (8.5-10.1) Total Bilirubin 0.9mg/dL (0.0-1.2) Aspartate Amino Transf (AST/SGOT) 24U/L (0-50) Alanine Aminotransferase (ALT/SGPT) 23U/L (0-32) Alkaline Phosphatase 89U/L (25-150) Troponin T 0.042ug/L (0.0-0.011) Total Protein 5.4g/dL (6.4-8.4) Albumin 3.0g/dL (3.4-5.0) Test 01/08/17 18:23 01/08/17 20:07 Hemoglobin 10.4g/dL (12.0-15.6) 10.2g/dL (12.0-15.6) Hematocrit 33.1% (35.0-46.0) 32.5% (35.0-46.0) Result Diagram: 01/08/175 01/08/17 0245 X-Rays, CTs and MRIs Chest and abdomen CT on 01/08/2017 IMPRESSION: 1. Normal CT aortogram. 2. Multiple staghorn stones in left kidney. No hydronephrosis. 3. Two low density hepatic masses in the right hepatic lobe, most likely hepatic hemangiomas or cysts. 4. A 2 mm nodule in the right middle lobe. Please followup recommendation. 5. Small hiatal hernia. IMPRESSION: 1. Moderate to large right retroperitoneal hematoma extending from the inguinal region into the pelvis and lower abdomen. No definite evidence of active arterial extravasation or pseudoaneurysm. Findings were discussed with Dr. Wyatt on 01/08/17 at 12:20 PM. 2. Extensive left nephrolithiasis redemonstrated without obstructive uropathy. Cardiac Echo Impressions Echo on 01/07/2017 Interpretation Summary 1) Normal left ventricular thickness, size, and systolic function (EF 55- 60%). 2) There is apical hypokinesis. 3) Normal right ventricular size and function. 4) No significant valvular abnormalities. 5) No prior Echo available for comparison. Findings consistent with ischemic heart disease. Additional Diagnostics Cardiac catheterization on 01/07/2017 CONCLUSIONS: 1. Coronary Angiogram -- Normal coronary arteries (see comments below). 2. Elevated LVED. 3. 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 Assessment & Plan Mrs. 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 Stat CT aortogram was ordered given patient's history of LDS, which was negative for any evidence of dissection or aneurysm. Initial EKGs are questionable for inferior lead elevation, repeat EKG revealed normal sinus rhythm without any acute ST-T changes. Initial troponin was negative, but repeat revealed elevation at 0.040. Cardiology was consulted in the emergency department, and recommendations include to proceed with treatment for NSTEMI consultation in the morning. Patient was initiated on heparin drip, and was admitted for further evaluation and treatment of NSTEMI. Patient will undergo cardiac catheterization on 01/07/2017 given echo findings of apical wall motion abnormalities in addition to chest pain and elevated troponins. Non-ST segment elevation myocardial infarction, acute, present on admission, under therapy - On admit: Initial troponin negative, repeat 0.040 - Patient states approximately 4 episodes of chest pain over recent months, of which she did not seek medical attention - History negative for smoking, diabetes, family history of coronary artery disease - Initial EKG questionable for inferior lead elevation, repeat no acute ST-T changes - Cardiology consulted: Dr. Meg; consult order has been placed -Stop heparin drip - EKG in am + prn CP - Trend troponin. Today, 01/07/17 troponin elevated to 0.436. 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 -Cardiology suggested optimal medical therapy including consider ASA; statin; and beta-marvin; and followup echo to consider resolution of her wall motion defect. Right retroperitoneal hematoma, acute, ongoing -Following cardiac catheterization - CT abdomen showed Moderate to large right retroperitoneal hematoma extending from the inguinal region into the pelvis and lower abdomen. No definite evidence of active arterial extravasation or pseudoaneurysm. -Right lower extremity ultrasound showed no pseudoaneurysms -Trend H&H every 2 hours -Type, cross match and hold Multiple staghorn stones in left kidney, present on admission, ongoing -No evidence of hydronephrosis, patient not complaining of flank pain -Found incidentally on CT -Please follow up with outpatient primary care provider Hepatic masses in the right hepatic lobe, present on admission, ongoing -most likely hepatic hemangiomas or cysts -Found incidentally on CT -Please follow up with outpatient primary care provider Nodule in the right middle lobe, present on admission, ongoing -2 mm nodule -Found incidentally on CT -Please follow up with outpatient primary care provider History of SMAD3/Loeys-Lavonne Syndrome, chronic, presumed stable - Strong family history of early onset secondary to complications of aneurysms and dissections -Patient has history of TIAs with PFO - Followed by Dr. Hernandez at [facility] - Patient reports normal imaging over recent years - Denies any history of cardiac abnormalities including of the aorta - Patient does report history of 2 brain aneurysms which were secondary to her underlying syndrome - CT aortogram at time of admission did not reveal any dissections or aneurysms - We will defer evaluation for smaller coronary aneurysms or dissections to the cardiology team - Will obtain records review from for completeness of history including recent prog notes and imaging reports Possible Obstructive sleep apnea, not currently using CPAP - Recommend outpatient referral to Sleep Medicine History of bipolar disorder, chronic, presumed stable - We will resume home medications when reconciliation completed and when appropriate Continued monitoring for cardiac risk factors, ongoing - Patient denies any personal history or family history of coronary artery disease, does not use tobacco, and denies any history of diabetes - We will obtain additional labs and monitor glucose levels, such as uric acid and A1c . Pain Evaluation: Adequate Pain Control GI Prophylaxis: H2 marvin VTE Prophylaxis: Other (cardiac heparin drip) Resuscitation Status: CPR: Attempt Resuscitation Attending Statement The patient was seen and examined together with Dr. Wyatt on 01/08/2017 and I agree with the history, exam and plan as outlined in the note above. . Soniya Wyatt DO Jan 08, 2017 07:25 Ulices Casey MD Jan 09, 2017 07:34
--- NOTE | 2017-01-08 21:50 | CONS ---
[address] [address] CONSULTATION REPORT PATIENT: RANDY CHILDERS : 1960 MR#: [id number] ADMIT: 01/06/2017 JOB ID: [id number] DATE OF SERVICE: 01/08/2017 CHIEF COMPLAINT: A 56-year-old lady with retroperitoneal hematoma after cardiac catheterization. Seen at the request of Nick Grimes MD. HISTORY OF PRESENT ILLNESS: The patient is a 56-year-old lady who presented to the emergency department with sudden substernal chest pain on January 07, 2017. She was diagnosed with a [id number] MA. Was started on heparin drip and underwent left heart catheterization and ventriculogram on the same day (that was yesterday, January 07, 2017). The angiogram showed normal coronary arteries with elevated left ventricular end-diastolic pressure. Angiogram was obtained through the right common femoral artery using modified Seldinger technique with a 10 cm 6-Cypriot sheath. The patient was feeling fine other than some bruising in the right groin and some discomfort in the right back, prompting a concern for bleeding and she has been followed with serial hemoglobins and a CT angiogram was performed and a Surgery consult was obtained. OTHER MEDICAL PROBLEMS: 1. Loeys-Lavonne variant syndrome. 2. Brain aneurysms x2. 3. Transient ischemic attacks. 4. Patent foramen ovale. 5. Bipolar disorder. PRIOR OPERATIONS: 1. Lithotripsy. 2. section x6. 3. Multiple breast augmentations with implant replacement and then removal secondary to complications. REVIEW OF SYSTEMS: Twelve-point review of systems negative other than the pertinent positives noted in the history of present illness and other medical problems. ALLERGIES: No known drug allergies. MEDICATIONS AT HOME: 1. Baby aspirin. 2. Atorvastatin. 3. Carvedilol. 4. Lamotrigine. 5. Lurasidone. INVESTIGATIONS: Hemoglobin stable at 10.2. Last platelet count at 124. PTT yesterday was 47 while she was on the heparin but the heparin has been off since then. Creatinine 0.38. Troponin 0.[address] angiogram from January 08, 2017 showed moderate size right retroperitoneal hematoma extending from the inguinal region into the pelvis with no evidence of active arterial extravasation or pseudoaneurysm. She was also have found to extensive left nephrolithiasis. Ultrasound from January 08, 2017, no obvious abnormality was seen but the final report is still pending at this time. PHYSICAL EXAMINATION: A 56-year-old lady in no acute distress. BMI 37.4, temperature 36.5, pulse 89, respiratory rate 18, blood pressure 117/76. Saturating 97% on room air. Eyes: Normal pupils, conjunctivae. Ears, nose, and throat: Normal external appearance. Neck: No adenopathy or jugular venous distention. Respiratory: Normal effort, clear to auscultation. Cardiovascular: Regular rate and rhythm. Gastrointestinal: Abdomen soft. Extremities: Some bruising in the right groin with palpable pulses. NEUROLOGIC: No gross deficits. PSYCH alert, appropriate. ASSESSMENT AND PLAN: Right showed retroperitoneal hematoma after catheterization without obvious evidence of ongoing bleeding. Continue to monitor for signs of further bleeding and anticipate supporting with transfusions as required. Very unlikely to require surgical intervention. Please call with any questions.
[2017-01-09] MEDS: Sodium Chloride LOK Flush 10 mL Syringe IVFLUSH SCH ×2 (01:43→08:27)
[2017-01-09] MEDS: 0.9% Sodium Chloride 1,000 ML IV SCH (02:21)
[2017-01-09] MEDS: HYDROcodone-APAP 5-325 mg Tablet PO PRN ×2 (02:29→08:27)
[2017-01-09 03:19] LABS: BASOPHILS % (AUTO) 0.4 % (0-3); EOSINOPHILS % (AUTO) 2.4 % (0-5); Mean Corpuscular Hemoglobin 29.7 pg (27.0-35.0); Mean Corpuscular Volume 93.7 fL (81-100); NEUTROPHILS % (AUTO) 67.5 % (40-74); Platelet Count 266 bil/L (150-400)
[2017-01-09 03:38] LABS: INR 0.94 ratio
[2017-01-09 04:33] VITALS: BP 100/52; PULSE 70; RESP 16; O2SAT 95
[2017-01-09 05:52] VITALS: PULSE 69
--- NOTE | 2017-01-09 06:43 | NUR ---
Pain c/o headache x2 this shift. Prn pain rx given x2. Patient states after first administration headache returned. Has been asleep since second administration and does not appear to be in any discomfort.
[2017-01-09 08:03] VITALS: PULSE 94
[2017-01-09 08:11] VITALS: BP 111/76; PULSE 96; RESP 16; O2SAT 96
[2017-01-09 08:15] VITALS: PULSE 96
[2017-01-09] MEDS: Isosorbide Mononitrate 30 mg ER24 Tablet PO SCH (08:26)
[2017-01-09] MEDS ORDERED: oxyCODONE-Acetamin 5-325 mg Tablet PO ONE (09:15)
--- NOTE | 2017-01-09 10:08 | DRSVH ---
PROCEDURE: US DUPLEX DOPPLER UNILATERAL LEG ARTERIES, RIGHT INDICATIONS: hematoma s/p cardiac cath TECHNIQUE: Color and pulse Doppler interrogation was performed of the right lower extremity arterial system, wit h image documentation. COMPARISON: None. FINDINGS: Limited sonography of the right groin demonstrates no abnormalities. No fluid collection or masses are seen. Normal appearance of the right common femoral artery and vein as is demonstrated with spectral and color-flow Doppler. IMPRESSION: No right groin pseudoaneurysm. Dictated by: Pelon RIDER Interpreted: Chiara Bynum MD on 01/08/2017 at 16:52 Approved by: Chiara Bynum M.D. on 01/09/2017 at 10:06
[2017-01-09 10:30] VITALS: BP 104/66; PULSE 66; RESP 20; O2SAT 96
[2017-01-09] MEDS: Ondansetron 2 mg/mL 2 mL Inj IVPUSH PRN (10:32)
--- NOTE | 2017-01-09 10:42 | NUR ---
PT eval not indicated nsg reports pt up indep in gigi and to discontinue the order momentarily; no PT indicated
[2017-01-09] MEDS ORDERED: OXYC1TAB24 PO (10:49)
--- NOTE | 2017-01-09 10:55 | NUR ---
Social Work Note: Initial Assessment/Discharge Data& Assessment: EMR reviewed. Per MD pt is medically ready to discharge. KEG FILLER met with pt and pt at bedside to discuss discharge Planning, KEG FILLER role explained and Discharge Planning checklist provided. Caterina Britt is a 56 year old female admitted on 01/06/2017 for NSTEMI. Per MD pt is medically improved and ready to discharge home via POV. Pt is ambulating halls at baseline. Pt has [employer] insurance coverage and sees Mike Eller MD for primary care. Pt lives in [place] with her spouse and is independent with all ADL's at baseline with no DME needs. Pt does not have HH hx, SNF hx, LTC insurance or [facility] service connection. DPOA/AD paperwork requested. Pt to transport her home today. No other MD orders or pt needs identified. Plan: Per pt is medically ready to discharge home via POV. Pt and pt deny any other needs. No other MD orders or pt needs identified. TEOFILO Quijano Addendum: 01/09/17 at 1101 by MORIAH HENRIQUEZ Amended: Links added.
--- NOTE | 2017-01-09 11:26 | PROG NOTE ---
[address] [address] PROGRESS NOTE PATIENT: RANDY CHILDERS : 1960 MR#: [id number] ADMIT: 01/06/2017 JOB ID: [id number] DATE: 01/09/2017 SUBJECTIVE: The patient is seen in followup. She complains of mild right lower quadrant pain. She has no nausea. OBJECTIVE: Temperature 36.6, pulse 96, blood pressure 111/76, saturation 96% on room air. General: She is sitting in bed, and in no acute distress. Chest is clear. Heart: Regular rate and rhythm. No murmurs. Abdomen is nondistended. She has mild tenderness in the right lower quadrant. Groin: There is a small ecchymosis in the right groin. LABORATORIES: White count is 8.9, hemoglobin 10.2, hematocrit 32.5, platelets 266. Creatinine 0.65, glucose 172, INR 0.94. ASSESSMENT AND PLAN: A 56-year-old woman with a small right retroperitoneal hematoma after cardiac catheterization. There is no evidence of ongoing bleeding. This is a relatively small hemorrhage compared to what is sometimes seen and certainly does not require surgical intervention. General Surgery will sign off.
--- NOTE | 2017-01-09 11:45 | NUR ---
Discharge note Patient a/o x 4, cont to c/o right groin/abd pain and headache, meds given per MD orders with moderate effect. Patient oob amb indep in yu, steady gait. Right groin site soft with minimal bruising, bilat pedal pulses palpable. VSS tele SR. Patient orion diet this a.m. but c/o nausea and left side chest pain prior to d/c. Zofran given for nausea and chest pain resolved without pain meds. Tele and IV SL x 2 removed intact. Patient given discharge instructions, med rec, info on angiogram, hematoma, new meds and prescriptions. All questions answered. Patient taken to the car via wheelchair with all belongings and discharged home with .
--- NOTE | 2017-01-09 12:08 | PCM.DC.MED ---
Discharge Summary Date of Service Jan 09, 2017 Dates of Hospitalization Date of Hospital Admission Jan 06, 2017 at 23:55 Date of Discharge: Jan 09, 2017 Providers: Admitting Physician: Aura Valenzuela DO Primary Care Physician: Martin Eller MD Attending Physician: Ulices Casey MD Diagnosis at Time of Discharge Diagnosis at Time of Discharge NSTEMI, acute, present on admission, resolved Stress cardiomyopathy, acute, present on admission, ongoing incidental finding on CT of Multiple staghorn stones in left kidney, present on admission, ongoing incidental finding on CT of Hepatic masses in the right hepatic lobe, present on admission, ongoing incidental finding on CT of Nodule in the right middle lobe, present on admission, ongoing History of SMAD3/Loeys-Lavonne Syndrome, chronic, presumed stable History of bipolar disorder, chronic, presumed stable Consultations Cardiology and Surgery were consulted Procedures XRay, CTs & MRIs Chest and abdomen CT on 01/08/[address]: [address] aortogram. 2. Multiple staghorn stones in left kidney. No hydronephrosis. 3. Two low density hepatic masses in the right hepatic lobe, most likely hepatic hemangiomas or cysts. 4. A 2 mm nodule in the right middle lobe. Please followup recommendation. 5. Small hiatal hernia. IMPRESSION: 1. Moderate to large right retroperitoneal hematoma extending from the inguinal region into the pelvis and lower abdomen. No definite evidence of active arterial extravasation or pseudoaneurysm. Findings were discussed with Dr. Wyatt on 01/08/17 at 12:20 PM. 2. Extensive left nephrolithiasis redemonstrated without obstructive uropathy. Cardiac Echo Impression Echo on 01/07/2017 Interpretation Summary 1) Normal left ventricular thickness, size, and systolic function (EF 55- 60%). 2) There is apical hypokinesis. 3) Normal right ventricular size and function. 4) No significant valvular abnormalities. 5) No prior Echo available for comparison. Findings consistent with ischemic heart disease. Other Diagnostics Cardiac catheterization on 01/07/2017 CONCLUSIONS: 1. Coronary Angiogram -- Normal coronary arteries (see comments below). 2. Elevated LVED. 3. 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 Brief History Per HPI by Dr. Wilson on 01/07/17: Mrs. 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 Stat CT aortogram was ordered given patient's history of LDS, which was negative for any evidence of dissection or aneurysm. Initial EKGs are questionable for inferior lead elevation, repeat EKG revealed normal sinus rhythm without any acute ST-T changes. Initial troponin was negative, but repeat revealed elevation at 0.040. Cardiology was consulted in the emergency department, and recommendations include to proceed with treatment for NSTEMI consultation in the morning. Patient was initiated on heparin drip, and was admitted for further evaluation and treatment of NSTEMI. - Hospital day 1 Patient states that evening of admission, she developed severe, sudden onset substernal chest pain without any identifiable inciting factors, she reports she was at rest. She reports history of or similar events over the recent weeks , of which, she did not seek any medical attention. She denies any history of heart disease, she is a nonsmoker, and not a diabetic. She denies any strong family history of heart disease, but notes a unique personal and family history of a Marfan variant,SMAD3, known as Loeys-Lavonne syndrome, genetic condition that has led to brain aneurysm 2 for a personal history, and she reports multiple family members have experienced early secondary to aortic rupture. She states she is followed by Dr. Holliday at the [facility] , a specialist in this condition. She reports that she is compliant with scheduled evaluations, and denies any recent abnormal findings. With the chest pain that occurred evening of admission, she also notes some associated diaphoresis, radiation to bilateral upper extremities, and nausea; she denies any associated shortness of breath, abdominal pain, lower extremity symptoms, fever, chills, nausea, vomiting, or GI symptoms such as diarrhea or constipation. She denies any recent sick contacts. At home, she states she attempted to utilize baking soda to help relieve her symptoms. In the ED, stat CT aortogram was completed given the patient's unique history, which did not reveal any acute abnormality such as evidence of dissection or aneurysm. Initial EKGs were questionable for inferior lead elevation, but repeat EKG revealed normal sinus rhythm without any acute ST-T changes. Initial troponin was negative, but repeat revealed an elevation at 0.040. ED kindly contacted cardiology, who agreed to consult on patient in the morning, with recommendations overnight to include initiation of heparin drip, and treatment protocol according to NSTEMI. Initial vitals obtained were stable, with T 36.6, T 72, R 22, BP 147/97, 98% on room air; initial labs revealed white count 7.9 with no shift, hemoglobin 12.7, platelets 291, electrolytes were within range, LFTs also within range, initial troponin negative, with repeat approximately 2 hours later revealed an elevation at 0.040; initial therapies included nitroglycerin paste, morphine sulfate IV pushes as needed, aspirin 324 mg, and initiation of cardiac heparin drip protocol. Patient was transferred to [facility] in stable condition. Hospital Course Mrs. 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 Stat CT aortogram was ordered given patient's history of LDS, which was negative for any evidence of dissection or aneurysm. Initial EKGs are questionable for inferior lead elevation, repeat EKG revealed normal sinus rhythm without any acute ST-T changes. Initial troponin was negative, but repeat revealed elevation at 0.040. Cardiology was consulted in the emergency department, and recommendations include to proceed with treatment for NSTEMI consultation in the morning. Patient was initiated on heparin drip, and was admitted for further evaluation and treatment of NSTEMI. Patient underwent cardiac catheterization on 01/07/2017 given echo findings of apical wall motion abnormalities in addition to chest pain and elevated troponins.Cardiac Catheterization on 01/07/17 showed evidence of focal wall motion defect likely consistent with atypical stress cardiomyopathy. Cardiology suggested optimal medical therapy including consider ASA; statin; and beta-marvin; and followup echo to consider resolution of her wall motion defect. During the cardiac catheterization, patient developed right retroperitoneal hematoma but CT of the abdomen and pelvis showed no evidence of active arterial extravasation or pseudoaneurysm. Surgery was consulted and assessed the patient. Patient was observed overnight with serial H&H have remained stable throughout. Non-ST segment elevation myocardial infarction, acute, present on admission, under therapy - On admit: Initial troponin negative, repeat 0.040 - Patient states approximately 4 episodes of chest pain over recent months, of which she did not seek medical attention - History negative for smoking, diabetes, family history of coronary artery disease - Initial EKG questionable for inferior lead elevation, repeat no acute ST-T changes - Cardiology consulted: Dr. Weaver; consult order has been placed -Stop heparin drip - EKG in am + prn CP - Trend troponin. Today, 01/07/17 troponin elevated to 0.436. - Provide additional cardiac therapies including morphine, oxygen, nitroglycerin , aspirin - Carvedilol 3.125 mg bid started - ASA received on admit, continue asa 81 mg daily - Atorvastatin 40 mg qhs -Patient was started on Imdur. However, unable to tolerate it so we will discontinue -ECHO on 01/07/2017 showed apical wall motion abnormalities -Cardiac Catheterization on 01/07/17 showed evidence of focal wall motion defect likely consistent with atypical stress cardiomyopathy. -Cardiology suggested optimal medical therapy including consider ASA; statin; and beta-marvin; and followup echo to consider resolution of her wall motion defect. Right retroperitoneal hematoma, acute, ongoing -Following cardiac catheterization - CT abdomen showed Moderate to large right retroperitoneal hematoma extending from the inguinal region into the pelvis and lower abdomen. No definite evidence of active arterial extravasation or pseudoaneurysm. -Right lower extremity ultrasound showed no pseudoaneurysms -Trend H&H every 2 hours -Type, cross match and hold -Surgery was consulted for assessment. Multiple staghorn stones in left kidney, present on admission, ongoing -No evidence of hydronephrosis, patient not complaining of flank pain -Found incidentally on CT -Please follow up with outpatient primary care provider Hepatic masses in the right hepatic lobe, present on admission, ongoing -most likely hepatic hemangiomas or cysts -Found incidentally on CT -Please follow up with outpatient primary care provider Nodule in the right middle lobe, present on admission, ongoing -2 mm nodule -Found incidentally on CT -Please follow up with outpatient primary care provider History of SMAD3/Loeys-Lavonne Syndrome, chronic, presumed stable - Strong family history of early onset secondary to complications of aneurysms and dissections -Patient has history of TIAs with PFO - Followed by Dr. Hernandez at [facility] - Patient reports normal imaging over recent years - Denies any history of cardiac abnormalities including of the aorta - Patient does report history of 2 brain aneurysms which were secondary to her underlying syndrome - CT aortogram at time of admission did not reveal any dissections or aneurysms - We will defer evaluation for smaller coronary aneurysms or dissections to the cardiology team Possible Obstructive sleep apnea, not currently using CPAP - Recommend outpatient referral to Sleep Medicine History of bipolar disorder, chronic, presumed stable - We will resume home medications when reconciliation completed and when appropriate Continued monitoring for cardiac risk factors, ongoing - Patient denies any personal history or family history of coronary artery disease, does not use tobacco, and denies any history of diabetes - Hemoglobin A1c was 5.7. Patient was advised on lifestyle modifications including diet and exercise. . Exam Vital Signs (Last) Date Time Temp Pulse Resp B/P Pulse Ox O2 Delivery O2 Flow Rate FiO2 01/09/17 10:30 66 20 104/66 96 Nasal Cannula 2.00 01/09/17 08:11 36.6 Exam General: Patient is lying comfortably on bed, AAOX3, patient in mild distress from her headache and groin pain HEENT: head normocephalic and atraumatic, PERRLA, EOMI, no scleral icterus, noninjected conjunctiva Neck: neck supple, non-tender, no lymphadenopathy, trachea midline, no JVD CV: regular rate and rhythm, s1 and s2 heard, no murmur, radial pulses 2+ and equal bilaterally, no rubs murmurs or gallops, no edema Lungs: Clear to auscultation bilaterally, no wheezes, rales or rhonchi, no increased work of breathing Abdomen: normoactive bowel sounds on 4Q, soft, non-distended, non-tender to palpation, no organomegally, Skin: warm and dry, tattoos on UE bilaterally, right groin site, small ecchymosis but no evidence of or hematoma or bleeding Musculoskeletal: 5/5 UE and LE strength bilaterally, full ROM bilaterally Neuro: Grossly neurologically intact, cranial nerves II through XII intact, no dyskinesia, Psych: Normal mood and affect Test 01/06/17 19:44 01/07/17 00:00 01/07/17 05:00 01/07/17 12:59 Magnesium Level 2.3mg/dL (1.6-2.6) Hemoglobin A1c 5.7% (4.8-5.6) Uric Acid 5.0mg/dL (2.6-7.2) Triglycerides Level 118mg/dL (0-149) Cholesterol Level 201mg/dL (100-199) LDL Cholesterol, Calculated 128.400mg/dL (0-99) VLDL Cholesterol 23.600mg/dL HDL Cholesterol 49mg/dL (>39) Cholesterol/HDL Ratio 4.10 (0.0-4.4) Thyroid Stimulating Hormone (TSH) 1.940uIU/mL (0.450-4.500) Free Thyroxine 1.17ng/dL (0.82-1.77) D-Dimer < 0.50mg/L FEU (<0.50) Test 01/08/17 02:45 01/09/17 03:13 01/09/17 08:43 Troponin T 0.042ug/L (0.0-0.011) White Blood Count 8.9th/mm3 (3.8-10.1) Red Blood Count 3.33mil/mm3 (3.90-5.20) Mean Corpuscular Volume 93.7fL (81-100) Mean Corpuscular Hemoglobin 29.7pg (27.0-35.0) Mean Corpuscular Hemoglobin Concent 31.7% (32.0-37.0) Red Cell Distribution Width 14.3% (12.3-15.4) Platelet Count 266bil/L (150-400) Neutrophils (%) (Auto) 67.5% (40-74) Lymphocytes (%) (Auto) 21.5% (14-46) Monocytes (%) (Auto) 8.0% (4-12) Eosinophils (%) (Auto) 2.4% (0-5) Basophils (%) (Auto) 0.4% (0-3) Prothrombin Time 10.0sec (8.1-12.5) Prothromb Time International Ratio 0.94ratio Activated Partial Thromboplast Time 28.7sec (22.8-33.0) Sodium Level 141mEq/L (134-144) Potassium Level 3.9mEq/L (3.5-5.2) Chloride Level 104mEq/L (97-108) Carbon Dioxide Level 22mmol/L (18-29) Blood Urea Nitrogen 6mg/dL (6-24) Creatinine 0.65mg/dL (0.57-1.00) Estimat Glomerular Filtration Rate 136mL/min (>59) Glucose Level 172mg/dL (60-99) Calcium Level 8.3mg/dL (8.5-10.1) Total Bilirubin 0.3mg/dL (0.0-1.2) Aspartate Amino Transf (AST/SGOT) 17U/L (0-50) Alanine Aminotransferase (ALT/SGPT) 12U/L (0-32) Alkaline Phosphatase 81U/L (25-150) Total Protein 6.1g/dL (6.4-8.4) Albumin 3.4g/dL (3.4-5.0) Hemoglobin 10.2g/dL (12.0-15.6) Hematocrit 32.5% (35.0-46.0) Discharge Medications Discharge Medications Aspirin Chew (Aspirin Chew) 81 Mg Chew 81 MG PO DAILY Prescribed by: Manda STATON Atorvastatin Calcium (Atorvastatin Calcium) 40 Mg Tablet 40 MG PO HS Prescribed by: Manda STATON Carvedilol (Carvedilol) 3.125 Mg Tablet 3.125 MG PO BID Prescribed by: Manda STATON Lamotrigine (Lamotrigine) 100 Mg Tablet 100 MG PO DAILY (Reported) Lurasidone (Latuda) 80 Mg Tablet 80 MG PO DAILY (Reported) As needed oxyCODONE-Acetaminophen 5-325 mg (oxyCODONE-Acetaminophen 5-325 mg) 1 Each Tablet 1 TAB PO Q6H PRN PRN For Pain Prescribed by: Manda STATON Additional med instructions We have started you on new medications which include aspirin 81 mg daily, atorvastatin 40 mg once a day and carvedilol 3.125 mg twice a day Followup Plan Follow-up plan We will schedule a follow-up with Cardiology in about a week. They will order for another ultrasound of your heart. Continue to follow up with [facility] at [facility] and your Neurologist in [place] and make sure to discuss your use of aspirin 81 mg with them. Lastly, Please follow-up with your primary care doctor to discuss your migraine headaches, in addition to the incidental findings on the CT scan which include: Multiple staghorn stones in left kidney, Hepatic masses in the right hepatic lobe, and Nodule in the right middle lobe of the lung. Discharge Diet: Diabetic Discharge Activity: No restrictions Patient Instructions When you presented to the hospital, you were having chest pain, excessive sweating and nausea. Although your repeat EKG looked normal, some of your heart enzymes were elevated so we consulted cardiology and we proceeded by treating you with morphine, nitro and heparin. You had an ultrasound of your heart, also known as an echocardiogram which showed that there was some defect in the motion of the one of the m[place] of the heart, which we believe is likely due to stress cardiomyopathy. You also had a cardiac catheterization performed on , which also showed similar findings. Stress cardiomyopathy can be a result of intense emotional or physical stress, which can cause some weakness of the heart muscle. This usually resolves over time. As a result, we would like for you to follow up with cardiology in about a week and get a repeat ultrasound of your heart to assess for improvement. In addition, we are sending you home with new medications for your heart including carvedilol 3.125 mg two times daily, atorvastatin 40 mg, and aspirin 81 mg. We are also recommending Cardiac rehabilitation program. Continue to follow up with Genetics Clinic at [facility] and your Neurologist in [place] and make sure to discuss your use of aspirin 81 mg with them. We also talked about the fact that you are pre-diabetic with a HgbA1C of 5.7 Please make dietary changes with reduction in carbohydrate intake as well as exercise regularly as tolerated. Lastly, we found some incidental findings on the CT scan which include: Multiple staghorn stones in left kidney, Hepatic masses in the right hepatic lobe, and Nodule in the right middle lobe of the lung. Please follow-up with your primary care doctor about these findings. You can also discuss your migraine headaches with your doctor. Follow-up Provider: Martin Eller MD Follow-up with PCP in: 1 week Provider: [facility] Follow-up in: 1 week Cardiac Rehab: 1 week Time spent Greater than 30 minutes was spent on discharge with greater than 50% of that time dedicated to counseling and coordination of care. . Attending Statement The patient was seen and examined together with Dr. Wyatt on 01/09/2017 and I agree with the history, exam and plan as outlined in the note above. . copies to: Martin Eller MD, Alexa N DO Jan 09, 2017 12:08 Ulices Casey MD Jan 09, 2017 16:41
== END 2017-01-09 11:45 | disposition home or self-care (01) | DRG 281 ==
LOC: SED 19:01 → OBSVTOIN 23:55 → MPC 23:55 → PCC 01-07 00:46
PROVIDERS: ADMIT Internal Medicine; ATTEND Internal Medicine
PROC: 4A023N7 Measurement of Cardiac Sampling and Pressure, Left Heart, Percutaneous Approach (ICD-10-PCS; principal; 2017-01-07)
PROC: B2111ZZ Fluoroscopy of Multiple Coronary Arteries using Low Osmolar Contrast (ICD-10-PCS; 2017-01-07)
PROC: B2151ZZ Fluoroscopy of Left Heart using Low Osmolar Contrast (ICD-10-PCS; 2017-01-07)
DX: I21.4 Non-ST elevation (NSTEMI) myocardial infarction (principal); M35.8 Other specified systemic involvement of connective tissue; I51.81 Takotsubo syndrome; I25.10 Atherosclerotic heart disease of native coronary artery without angina pectoris; I10 Essential (primary) hypertension; E78.5 Hyperlipidemia, unspecified; F31.9 Bipolar disorder, unspecified; R16.0 Hepatomegaly, not elsewhere classified; N20.0 Calculus of kidney; Z82.49 Family history of ischemic heart disease and other diseases of the circulatory system; Z86.73 Personal history of transient ischemic attack (TIA), and cerebral infarction without residual deficits; Z79.82 Long term (current) use of aspirin

== ENCOUNTER 2017-01-11 09:07 | Observation (INO) | payer OTHER ==
[2017-01-11] VITALS (8 sets, daily range): BP systolic 103–126; BP diastolic 56–93; PULSE 82–98; RESP 14–20; O2SAT 95–100
[~2017-01-11] VITALS: Ht 160 cm; Wt 92.7 kg
[~2017-01-11 09:07] MED LIST: ASPI81TA3 PO; ATOR40TA69 PO; CARV3.122 PO; LAMO100T2 PO; LURA80TA3 PO; OXYC1TAB24 PO
--- NOTE | 2017-01-11 09:28 | ED.REPORT ---
HPI-General Illness Date of Service Jan 11, 2017 ED Provider: Derek Wallace MD This is a 56-year-old female with history of Loeys-Lavonne Syndrome (LDS), TIA x2 and brain aneurysm x2, who presents to the emergency department for right sided abdominal pain. The pain is periumbilical and radiates to the right flank. Patient states that this has been ongoing since her angiogram on 01/06/17. She describes it as a 5 out of 10 dull ache with lying down. Said it is worse with movement and whenever someone pokes on it. She does report mild relief with oxycodone, but nothing has actually taken away the pain. As of last night it has become constant. She has never had anything like this before. Patient does have some nausea but she denies fevers, chills, chest pain, shortness of breath, urinary urgency and dysuria. She does mention taking magnesium citrate tonight before and had diarrhea due to that. She does have a history of kidney stones but reports this does not feel similar. 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 During that angiogram she did have a retroperitoneal hematoma that was induced. Surgery was contacted at that time and since it was thought to be stable, they did not recommend surgery at that time. Nursing Notes Stated Complaint: SIDE PAIN Chief Complaint: Female Abdominal Pain Nursing Notes Reviewed: Yes Allergies: Coded Allergies: No Known Allergies (Unverified Allergy, Unknown, 01/11/17) Scheduled Aspirin (Aspirin) 81 Mg Tablet 81 MG PO HS Atorvastatin Calcium (Atorvastatin Calcium) 40 Mg Tablet 40 MG PO HS Carvedilol (Carvedilol) 3.125 Mg Tablet 3.125 MG PO BID Lamotrigine (Lamotrigine) 100 Mg Tablet 100 MG PO HS Lurasidone (Latuda) 80 Mg Tablet 80 MG PO HS Scheduled PRN oxyCODONE-Acetaminophen 5-325 mg (oxyCODONE-Acetaminophen 5-325 mg) 1 Each Tablet 1 TAB PO Q6H PRN PRN For Pain General Time Seen by MD: 09:25 Chief Complaint Abdominal pain Hx Obtained From: Patient Past Medical History Past Medical History TIAs Bipolar Hx of brain aneurysms (one ruptured at 21 years old, 2 small ones currently) LoeysDietz syndrome (LDS) Past Surgical History Breast augmentation with implant removal. Lithotripsy. Reports: Smoking History Never Smoker Social History Alcohol Use: "Social" Drug Use: Denies drug use Ambulatory Status Independent Review of Systems Full Review of Systems Constitutional: Denies: Chills, Fever Eyes: Denies: Blurred bilateral Ears / Nose / Throat: Denies: Sore throat Respiratory: Denies: Shortness of breath Cardiovascular: Denies: Chest pain GI: Reports: Abdominal pain, Diarrhea, Nausea, Denies: Bloody/tarry stool, Vomiting Female: Reports: Flank pain, Denies: Dysuria, Hematuria, Urinary urgency Musculoskeletal: Reports: Back pain Hematologic: Denies Bruising Skin: Denies Rash Complete sys rev & neg: except as marked. Physical Exam Vital Signs Vital Signs Date Time Temp Pulse Resp B/P Pulse Ox O2 Delivery O2 Flow Rate FiO2 01/11/17 13:20 84 14 116/58 99 Room Air 01/11/17 11:57 82 15 103/64 100 Room Air 01/11/17 09:12 36.9 92 18 126/93 96 Initial VS: Reviewed General/Constitutional: Well-developed, Well-nourished Head / Eyes: Atraumatic, Normocephalic ENT: Mucous membranes moist, Conjunctiva normal, No scleral icterus Neck: Supple, Non-tender, Full range of motion Respiratory: Breath sounds normal, Clear to auscultation, No respiratory distress Cardiovascular: Regular rate & rhythm, Heart sounds normal, Intact distal pulses Abdomen / GI: Soft, No guarding, No distention Extremities: Vascular intact, Neuro intact, No swelling Skin: Warm, Dry Neurologic: Alert, Oriented, Nonfocal Psychiatric: Mood/affect normal, Behavior normal, Normal thought content General/Constitutional: Awake, Alert, Well developed Tenderness/Guarding/Rebound: Positive: Tender flank R, Tender periumbilical Back: No midline vertebral tend CVA tenderness on the righ Interpretation & Diagnostics Lab Results Interpretation Result Diagram: 01/11/17 0945 01/11/17 0945 Test 01/11/17 09:45 01/11/17 11:00 White Blood Count 8.8th/mm3 (3.8-10.1) Red Blood Count 3.46mil/mm3 (3.90-5.20) Hemoglobin 10.4g/dL (12.0-15.6) Hematocrit 32.8% (35.0-46.0) Mean Corpuscular Volume 94.8fL (81-100) Mean Corpuscular Hemoglobin 30.1pg (27.0-35.0) Mean Corpuscular Hemoglobin Concent 31.7% (32.0-37.0) Red Cell Distribution Width 14.3% (12.3-15.4) Platelet Count 317bil/L (150-400) Neutrophils (%) (Auto) 67.0% (40-74) Lymphocytes (%) (Auto) 20.8% (14-46) Monocytes (%) (Auto) 8.3% (4-12) Eosinophils (%) (Auto) 3.5% (0-5) Basophils (%) (Auto) 0.3% (0-3) Prothrombin Time 9.9sec (8.1-12.5) Prothromb Time International Ratio 0.93ratio Sodium Level 140mEq/L (134-144) Potassium Level 4.3mEq/L (3.5-5.2) Chloride Level 102mEq/L (97-108) Carbon Dioxide Level 24mmol/L (18-29) Blood Urea Nitrogen 11mg/dL (6-24) Creatinine 0.57mg/dL (0.57-1.00) Estimat Glomerular Filtration Rate 158mL/min (>59) Glucose Level 99mg/dL (60-99) Lactic Acid Level 0.7mmol/L (0.4-2.0) Calcium Level 8.9mg/dL (8.5-10.1) Magnesium Level 2.3mg/dL (1.6-2.6) Total Bilirubin 0.4mg/dL (0.0-1.2) Aspartate Amino Transf (AST/SGOT) 16U/L (0-50) Alanine Aminotransferase (ALT/SGPT) 13U/L (0-32) Alkaline Phosphatase 98U/L (25-150) Troponin T 0.281ug/L (0.0-0.011) Total Protein 7.0g/dL (6.4-8.4) Albumin 3.9g/dL (3.4-5.0) Lipase 22U/L (13-60) Hold Shields Top Tube Received (Received) Urine Color Yellow (YELLOW) Urine Appearance Clear (CLEAR,HAZY) Urine pH 6.0 (5.0-8.0) Urine Specific [place] 1.014 (1.003-1.035) Urine Protein Negativemg/dL (NEG,TRACE) Urine Glucose (UA) Negativemg/dL (NEGATIVE) Urine Ketones Negativemg/dL (NEGATIVE) Urine Occult Blood Negative (NEGATIVE) Urine Nitrite Negative (NEGATIVE) Urine Bilirubin Negative (NEGATIVE) Urine Urobilinogen Normalmg/dL (NORMAL) Urine Leukocyte Esterase Negative (NEGATIVE) Urine RBC 0-2/hpf (0-2) Urine WBC 0-5/hpf (0-5) Urine Epithelial Cells Few/hpf (NONE-MOD) Urine Crystals None seen (NONE SEEN) Urine Bacteria Few/hpf (NONE-FEW) Urine Hyaline Casts None/lpf (NONE) Urine Granular Casts None seen (NONE SEEN) Urine Waxy Casts None seen (NONE SEEN) Urine Red Blood Cell Casts None seen (NONE SEEN) Urine White Blood Cell Casts None seen (NONE SEEN) Urine Mucus None seen (None Seen) Urine Trichomonas None seen (NONE SEEN) Urine Yeast None (NONE SEEN) Urinalysis Comment None Urine Culture Reflexed Not indicated CT Abd / Pelvis Interpretation IMPRESSION: 1. Decrease in size of right retroperitoneal hematoma. No evidence of active extravasation. 2. No evidence aortic dissection or aneurysm. 3. Small port hypodensity in the body of the pancreas likely representing a small side branch IPMN. A followup study may be performed in 12 months to demonstrate stability if clinically indicated. Interpretation / Wet Read by: Interpret - Radiologist Re-Eval/Medical Decision Med Decision/Clinical Course This is a 56-year-old female with history of Loeys-Lavonne Syndrome (LDS), TIA 2 and brain aneurysm 2 and recent hospitalization for NSTEMI thought to be secondary to stress cardiomyopathy, who presents to the ED for abdominal pain ongoing since coronary angiogram on 01/06/17. She reports that this pain has been getting worse. At that time she had a retroperitoneal hematoma that was felt to be stable per H/H. On physical exam patient is having significant tenderness of the right flank and right-sided CVA tenderness. Hgb 10.4, which has improved from prior otherwise CBC is unremarkable, so unlikely that hematoma is worsening. CMP, lactic acid and lipase also within normal limits. Troponin elevated at 0.282, previously 0.042 on 01/08/17. Elevated troponin was discussed with Dr. Madden, who recommended echocardiogram but did not feel it was necessary for cardiology consultation at this time as coronary arteries were normal just a few days prior. He did not feel there was anything that cardiology could add at this time but is willing to see patient as needed by the hospitalist. He recommended workup for abdominal cause of pain. CT chest, abdomen and pelvis did not show any evidence of aortic dissection. Also shown was a decrease in size of right retroperitoneal hematoma. No evidence of active extravasation. Patient was given IV Dilaudid to help minimize pain but had minimal relief. Based on all of this, including her history of LDS, I recommend admission to the hospital for echocardiogram and workup for cause of intractable abdominal pain. Consultation #1: Referral / Consult Name: Bernadette Madden MD Consulted With: Cardiology Call Returned at: 14:00 Note: Cardiology recommended to repeat the echocardiogram and workup source of abdominal pain. Does not feel that cardiology is needed at this time as coronary angiogram had already been done which showed normal arteries and only medication optimization would be done. He will see patient if needed by the hospitalist team. Consultation #2: Referral / Consult Name: Paz Alvarado DO Consulted With: Hospitalist Gaming Director: Accepts admit Note: Dr. Alvarado accepts admit Counseled Regarding: Diagnosis, Lab results, Need for admission Discharge & Departure Primary Impression: Non-ST elevation myocardial infarction (NSTEMI), type 2 Additional Impression: Intractable abdominal pain Disposition: ADMITTED TO HOSPITAL Discharge Condition All VS Reviewed: Yes Condition: Stable Referrals: Martin Eller MD (PCP) Attending Statement I saw and evaluated the patient in conjunction with the resident. I performed my own history and physical examination. I agree with the plan and findings as documented above. Derek Wallace MD Jan 11, 2017 09:28 Lizandro Mercado DO Jan 11, 2017 13:57
[2017-01-11] MEDS ORDERED: 0.9% Sodium Chloride 1,000 ML IV ONE (09:57)
[2017-01-11] MEDS ORDERED: Ondansetron 2 mg/mL 2 mL Inj IVPUSH PRN ×2 (10:00→15:25)
[2017-01-11 10:15] LABS: BASOPHILS % (AUTO) 0.3 % (0-3); EOSINOPHILS % (AUTO) 3.5 % (0-5); MONOCYTES % (AUTO) 8.3 % (4-12); Mean Corpuscular Hemoglobin 30.1 pg (27.0-35.0); Mean Corpuscular Volume 94.8 fL (81-100); Platelet Count 317 bil/L (150-400)
[2017-01-11 10:48] LABS: Magnesium 2.3 mg/dL (1.6-2.6)
[2017-01-11 10:51] LABS: INR 0.93 ratio
[2017-01-11 10:56] LABS: TROPONIN T 0.281 ug/L (0.0-0.011)
[2017-01-11] MEDS: HYDROmorphone 0.5 mg/0.5 mL iSecure Syringe IVPUSH PRN ×3 (10:59→16:28)
--- NOTE | 2017-01-11 12:29 | DRSVH ---
PROCEDURE: CT ANGIO CHEST ABDOMEN AND PELVIS INDICATIONS: 56 year-old female with history of retroperitoneal hematoma from recent cardiac catheter ization presenting with severe abdominal pain. Patient also with strong family history of dissection . TECHNIQUE: After the administration of intravenous contrast, 3 mm thick sections again acquired from the lung ap ices to the iliac crests. 3-dimensional maximum intensity projection (MIP) oblique sagittal and gómez nal reformats were then acquired, and/or 3-dimensional volume rendering reformats. For radiation dos e reduction, the following was used: automated exposure control. COMPARISON: [facility], CT, CT ANGIO CHEST ABD, 01/06/2017, 20:08. [facility], CT, CT ANGIO ABD PELVIS, 01/08/2017, 11:31. FINDINGS: Image quality: Excellent. AORTA: The aorta is normal in caliber without intimal flaps to suggest dissection. There is convent ional branching of the great vessels which appear patent and normal in caliber where visualized. CHEST: Lungs and pleura: No acute consolidation. No pleural effusions or pneumothorax. Central and periph eral airways are patent and normal in caliber. Mediastinum: Heart size is normal. No pericardial effusion. No mediastinal or hilar adenopathy by size criteria. Central pulmonary arteries are normal in size. Esophagus is normal in caliber. Ther e is a small hiatal hernias. Bones and chest wall: No axillary adenopathy by size criteria. Thyroid gland demonstrates no discre te nodules. No suspicious bony lesions. No vertebral body compression fractures. ABDOMEN: Vasculature: The celiac, superior mesenteric, inferior mesenteric arteries appear patent. There is a small accessory left renal artery. The renal arteries appear patent bilaterally. Solid organs: Liver and spleen are normal in size. There are 2 lobulated hepatic cysts redemonstrat ed. Gallbladder appears within normal limits without calcified gallstones. Biliary system is non di lated. There is a small ovoid hypoattenuating lesion within the body of the pancreas measuring 7 mm suggestive of a small side branch IPMN which is seen to greater advantage on the current study. No a drenal nodules. There are numerous clustered renal stones redemonstrated within the left kidney. No evidence of hydronephrosis. Peritoneum and bowel: No free fluid or air. Bowel loops are normal in caliber and wall thickness. There is colonic diverticulosis without acute diverticulitis. Nodes and vessels: No retroperitoneal or mesenteric adenopathy by size criteria. Inferior vena cava is normal in morphology. Miscellaneous: There is a heterogeneous right retroperitoneal hematoma which appears decreased in si ze compared to the prior study. A volunteer patient representative transverse measurement on series 5 image 154 measur es 8.8 x 4.2 cm compared to 11.0 x 6.6 cm previously. No evidence of active extravasation. No ventr al hernias. PELVIS: Genitourinary: Bladder wall thickness is normal. Miscellaneous: There is fat stranding and edema in the right inguinal region. No inguinal hernias o r adenopathy. No ventral hernias. Bones: No suspicious bony lesions. No vertebral body compression fractures. IMPRESSION: 1. Decrease in size of right retroperitoneal hematoma. No evidence of active extravasation. 2. No evidence aortic dissection or aneurysm. 3. Small port hypodensity in the body of the pancreas likely representing a small side branch IPMN. A followup study may be performed in 12 months to demonstrate stability if clinically indicated. Dictated by: Abdirizak Marques M.D. on 01/11/2017 at 12:15 Approved by: Abdirizak Marques M.D. on 01/11/2017 at 12:28
[2017-01-11 12:47] LABS: APPEARANCE,URINE CLEAR (CLEAR,HAZY); COLOR,URINE YELLOW (YELLOW); OCCULT BLOOD,URINE NEGATIVE (NEGATIVE); UROBILINOGEN,URINE NORMAL (NORMAL)
[2017-01-11] MEDS ORDERED: ASPI-973 PO (15:01)
[2017-01-11] MEDS ORDERED: Polyethylene Glycol (PEG) 17 Gm Powder PO PRN (15:25)
[2017-01-11] MEDS ORDERED: Alum-Mag Hydrox-Simeth 30 mL Suspension PO PRN (15:25)
--- NOTE | 2017-01-11 16:06 | PCM.HPMED ---
Subjective Date of Service Jan 11, 2017 Primary Provider: Admitting Physician: Primary Care Physician: Martin Eller MD Attending Physician: Admit Status: From the Emergency Department Chief Complaint: Right lower quadrant Abdominal pain History of Present Illness: Mrs. 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 She describes the pain as sharp and achy, which awoke her from sleep around 3 AM. She felt that she was feeling better after being discharged on 01/09/17 until last night when the pain became more constant. She admits to pushing herself more physically and increasing her activity after discharge. She notes that the pain is a 4 out of 10, radiating to her umbilicus as well as her flank and lower back. The pain is exacerbated by coughing, moving, and touching. She states that the pain is only minimally relieved by oxycodone and that the pain is not affected by oral intake; however she notes that she has had increased hiccups. She denies any recent trauma to the abdominal area. She reports that she has had an episode of diarrhea this morning because she took magnesium citrate because she was afraid that straining would worsen her abdominal pain. In addition, she denies nausea, vomiting, constipation, bloating, hematochezia, melena and dysuria. In addition, she reports nocturia initially, she notes that she urinates about once a night. However for the past couple of days she has been urinating about 5 times a night, without increasing fluid intake. On review of systems, she denies headaches, visual changes, fevers, chills, nausea , vomiting, chest pain, shortness of breath Patient was recently admitted to [facility] from 01/06/2017 to 06/2016 for NSTEMI. 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 Cardiology suggested optimal medical therapy including consider ASA; statin; and beta-marvin; and followup echo to consider resolution of her wall motion defect. After the cardiac catheterization, patient developed right retroperitoneal hematoma but CT of the abdomen and pelvis showed no evidence of active arterial extravasation or pseudoaneurysm. Surgery was consulted and assessed the patient. Patient was observed overnight with serial H&H those remained stable throughout the duration of her hospitalization. Vital signs in the ED include temperature of 36.9, pulse 92, respiratory rate 18 , blood pressure 126/93 and 96% on room air. CBC significant for H&H of hemoglobin 10.4 and hematocrit 32.8. She was discharged on 01/09/2017,H&H of hemoglobin 10.2 and hematocrit 32.5. Today, Troponin was elevated at 0.281. However, troponin when she was last admitted ranged from 0.04-0.436. Lipase was normal at 22. CMP was unremarkable. Urinalysis was negative. Lactic acid normal at 0.7. Today, EKG, showed sinus rhythm with heart rate 78. CT of the chest, abdomen, and pelvis on 01/11/17 showed Decrease in size of right retroperitoneal hematoma. No evidence of active extravasation. No evidence aortic dissection or aneurysm. Patient was given IV Dilaudid to help minimize pain but had minimal relief. Cardiology (Dr. Madden) recommended to repeat the echocardiogram. Patient will be admitted into observation to workup intractable abdominal pain. Review of Systems: The comprehensive review of systems was conducted with the patient and found to be negative except as above in the history of present illness. 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, TIAs Reported history of bipolar disorder Surgical History Patient reports multiple breast augmentations with implant placement and then subsequent implant removal secondary to complications of continued bleed Lithotripsy section 6 Family History Patient reports strong family history of Loeys-Lavonne Syndrome/SMAD3 with multiple family members experiencing early onset secondary to complications of the syndrome, including brain aneurysms and aortic aneurysms and dissections She denies any family history as far as she knows of diabetes, hyperlipidemia, hypertension, or malignancies Patient notes she was adopted, but was able to track down some of her family history and has found out above information, and she additionally reports that her children are also positive for this genetic variant Social History Hx Alcohol Use: Yes ("2 drinks a week") Hx Substance Use: Yes (occasional marijuana) Hx Tobacco Use: No Smoking Status: Never Smoker Living Arrangement: with Family Exam Vital Signs Vital Sign - Last Date Time Temp Pulse Resp B/P Pulse Ox O2 Delivery O2 Flow Rate FiO2 01/11/17 13:20 84 14 116/58 99 Room Air 01/11/17 09:12 36.9 Exam General: Patient is an obese female lying on bed, AAOX3, patient in mild distress from her abdominal pain HEENT: head normocephalic and atraumatic, PERRLA, EOMI, no scleral icterus, noninjected conjunctiva Neck: neck supple, non-tender, no lymphadenopathy, trachea midline, no JVD CV: regular rate and rhythm, s1 and s2 heard, no murmur, radial pulses 2+ and equal bilaterally, no rubs murmurs or gallops, no edema Lungs: Clear to auscultation bilaterally, no wheezes, rales or rhonchi, no increased work of breathing Abdomen: normoactive bowel sounds on 4Q, soft, non-distended, tender to palpation of the RLQ, no rebound tenderness, jovel's sign negative, CVA tenderness mildly positive on Right flank Skin: warm and dry, tattoos on UE bilaterally, right groin angiogram site, small ecchymosis but no evidence of or hematoma or bleeding Musculoskeletal: 5/5 UE and LE strength bilaterally, full ROM bilaterally Neuro: Grossly neurologically intact, cranial nerves II through XII intact, no dyskinesia, Psych: Normal mood and affect Lab and Diagnostics Labs Laboratory Tests Test 01/11/17 09:45 01/11/17 11:00 White Blood Count 8.8th/mm3 (3.8-10.1) Red Blood Count 3.46mil/mm3 (3.90-5.20) Hemoglobin 10.4g/dL (12.0-15.6) Hematocrit 32.8% (35.0-46.0) Mean Corpuscular Volume 94.8fL (81-100) Mean Corpuscular Hemoglobin 30.1pg (27.0-35.0) Mean Corpuscular Hemoglobin Concent 31.7% (32.0-37.0) Red Cell Distribution Width 14.3% (12.3-15.4) Platelet Count 317bil/L (150-400) Neutrophils (%) (Auto) 67.0% (40-74) Lymphocytes (%) (Auto) 20.8% (14-46) Monocytes (%) (Auto) 8.3% (4-12) Eosinophils (%) (Auto) 3.5% (0-5) Basophils (%) (Auto) 0.3% (0-3) Prothrombin Time 9.9sec (8.1-12.5) Prothromb Time International Ratio 0.93ratio Sodium Level 140mEq/L (134-144) Potassium Level 4.3mEq/L (3.5-5.2) Chloride Level 102mEq/L (97-108) Carbon Dioxide Level 24mmol/L (18-29) Blood Urea Nitrogen 11mg/dL (6-24) Creatinine 0.57mg/dL (0.57-1.00) Estimat Glomerular Filtration Rate 158mL/min (>59) Glucose Level 99mg/dL (60-99) Lactic Acid Level 0.7mmol/L (0.4-2.0) Calcium Level 8.9mg/dL (8.5-10.1) Magnesium Level 2.3mg/dL (1.6-2.6) Total Bilirubin 0.4mg/dL (0.0-1.2) Aspartate Amino Transf (AST/SGOT) 16U/L (0-50) Alanine Aminotransferase (ALT/SGPT) 13U/L (0-32) Alkaline Phosphatase 98U/L (25-150) Troponin T 0.281ug/L (0.0-0.011) Total Protein 7.0g/dL (6.4-8.4) Albumin 3.9g/dL (3.4-5.0) Lipase 22U/L (13-60) Hold Shields Top Tube Received (Received) Urine Color Yellow (YELLOW) Urine Appearance Clear (CLEAR,HAZY) Urine pH 6.0 (5.0-8.0) Urine Specific [place] 1.014 (1.003-1.035) Urine Protein Negativemg/dL (NEG,TRACE) Urine Glucose (UA) Negativemg/dL (NEGATIVE) Urine Ketones Negativemg/dL (NEGATIVE) Urine Occult Blood Negative (NEGATIVE) Urine Nitrite Negative (NEGATIVE) Urine Bilirubin Negative (NEGATIVE) Urine Urobilinogen Normalmg/dL (NORMAL) Urine Leukocyte Esterase Negative (NEGATIVE) Urine RBC 0-2/hpf (0-2) Urine WBC 0-5/hpf (0-5) Urine Epithelial Cells Few/hpf (NONE-MOD) Urine Crystals None seen (NONE SEEN) Urine Bacteria Few/hpf (NONE-FEW) Urine Hyaline Casts None/lpf (NONE) Urine Granular Casts None seen (NONE SEEN) Urine Waxy Casts None seen (NONE SEEN) Urine Red Blood Cell Casts None seen (NONE SEEN) Urine White Blood Cell Casts None seen (NONE SEEN) Urine Mucus None seen (None Seen) Urine Trichomonas None seen (NONE SEEN) Urine Yeast None (NONE SEEN) Urinalysis Comment None Urine Culture Reflexed Not indicated Result Diagram: 01/11/17 0945 01/11/17 0945 X-Rays, CTs and MRIs PROCEDURE: CT ANGIO CHEST ABDOMEN AND PELVIS on 01/11/2017 IMPRESSION: 1. Decrease in size of right retroperitoneal hematoma. No evidence of active extravasation. 2. No evidence aortic dissection or aneurysm. 3. Small port hypodensity in the body of the pancreas likely representing a small side branch IPMN. A followup study may be performed in 12 months to demonstrate stability if clinically indicated. Dictated and Approved by: Abdirizak Marques M.D. on 01/11/2017 at 12:[address] on 01/08/[address]: 1[address] aortogram. 2. Multiple staghorn stones in left kidney. No hydronephrosis. 3. Two low density hepatic masses in the right hepatic lobe, most likely hepatic hemangiomas or cysts. 4. A 2 mm nodule in the right middle lobe. Please followup recommendation. 5. Small hiatal hernia. IMPRESSION: 1. Moderate to large right retroperitoneal hematoma extending from the inguinal region into the pelvis and lower abdomen. No definite evidence of active arterial extravasation or pseudoaneurysm. Findings were discussed with Dr. Wyatt on 01/08/17 at 12:20 PM. 2. Extensive left nephrolithiasis redemonstrated without obstructive uropathy. 12-lead ECG EKG in ED shows normal sinus rhythm with heart rate of 78 Cardiac Echo Impressions Echo on 01/07/2017 Interpretation Summary 1) Normal left ventricular thickness, size, and systolic function (EF 55- 60%). 2) There is apical hypokinesis. 3) Normal right ventricular size and function. 4) No significant valvular abnormalities. 5) No prior Echo available for comparison. Findings consistent with ischemic heart disease. Other Diagnostics Cardiac catheterization on 01/07/2017 CONCLUSIONS: 1. Coronary Angiogram -- Normal coronary arteries (see comments below). 2. Elevated LVED. 3. 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 Additional Diagnostics: Cardiac catheterization on 01/07/17: FINDINGS: 1. LMCA: Normal. The left main coronary artery is a large vessel with no angiographically evident disease. 2. LAD: Normal. The left anterior descending coronary artery is a large transapical vessel with no angiographic obstruction and no evident atherosclerotic plaquing. The Mid LAD gives a moderate-sized Diagonal. 3. LCX: Normal. The left circumflex coronary artery has no angiographic obstruction or evident atherosclerotic plaquing. 4. RCA: Dominant. No evident angiographic obstruction (see comments below). The right coronary artery is a moderate-size vessel with small PDA and small to moderate-sized RPLB. Overall the right coronary artery has no angiographic obstructive disease; or atherosclerotic obstruction(CARLOS MANUEL-3 flow). 5. LHC: LVED 23 mmHg; and no systolic gradient on pullback across the aortic valve. 6. LVG: Left ventriculogram shows overall normal to vigorous LV global systolic function. There is a small unusual appearing focal inferoapical dyskinetic segment. No MR. CONCLUSIONS: 1. Coronary Angiogram -- Normal coronary arteries (see comments below). 2. Elevated LVED. 3. 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 Assessment & Plan Mrs. 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 After the cardiac catheterization, patient developed right retroperitoneal hematoma but CT of the abdomen and pelvis showed no evidence of active arterial extravasation or pseudoaneurysm. Her hemoglobin and hematocrit have remained stable after discharge. CT of the chest, abdomen, and pelvis on 01/11/17 showed decrease in size of right retroperitoneal hematoma without evidence of active extravasation, aortic dissection or aneurysm. Patient was given IV Dilaudid to help minimize pain but had minimal relief. Patient will be admitted into observation to workup intractable abdominal pain. Acute Abdominal pain, present on admission, under investigation -possible causes include: renal stones, musculoskeletal pain from increased activity with retroperitoneal hematoma, referred cardiac pain -Vital signs in the ED include temperature of 36.9, pulse 92, respiratory rate 18, blood pressure 126/93 and 96% on room air. -Patient was given IV Dilaudid to help minimize pain but had minimal relief. -CT of the chest, abdomen, and pelvis on 01/11/17 showed Decrease in size of right retroperitoneal hematoma. No evidence of active extravasation. No evidence aortic dissection or aneurysm. -Lipase was normal at 22. Small port hypodensity in the body of the pancreas likely representing a small side branch IPMN. - Urinalysis was negative. 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 -Today, EKG, showed sinus rhythm with heart rate 78 -Today, Troponin was elevated at 0.281. However, troponin when she was last admitted ranged from 0.04-0.436. -Cardiology suggested optimal medical therapy -Continue home medications which include: aspirin 81 mg, atorvastatin 40 mg, carvedilol 3.125 mg by mouth twice a day -Cardiology (Dr. Madden) suggested repeat ECHO Right retroperitoneal hematoma, acute, ongoing -Following cardiac catheterization on 01/07/17 -CT of the chest, abdomen, and pelvis on 01/11/17 showed Decrease in size of right retroperitoneal hematoma. No evidence of active extravasation. No evidence aortic dissection or aneurysm - H&H hemoglobin 10.2 and hematocrit 32.5, stable from discharge Multiple staghorn stones in left kidney, present on admission, ongoing -Found incidentally on CT 01/08/17 -Patient complaining of Right flank pain -Ordered a renal ultrasound to make sure that stones have not dislodged Small port hypodensity in the body of the pancreas likely representing a small side branch IPMN, present on admission, ongoing -Found incidentally on CT 01/11/17 -Lipase was normal at 22 -Radiology recommends A followup study may be performed in 12 months to demonstrate stability if clinically indicated History of SMAD3/Loeys-Lavonne Syndrome, chronic, presumed stable - Strong family history of early onset secondary to complications of aneurysms and dissections -Patient has history of TIAs with PFO - Followed by Dr. Hernandez at [facility] - Patient reports normal imaging over recent years - Denies any history of cardiac abnormalities including of the aorta - Patient does report history of 2 brain aneurysms which were secondary to her underlying syndrome History of bipolar disorder, chronic, presumed stable - Continue home medications Patient Status: Patient is admitted under observation expected length of stay less than 2 midnights due to severity of presenting symptoms, risk of adverse events, and complexity of treatment plan. Pain Evaluation: Adequate Pain Control GI Prophylaxis: H2 marvin VTE Prophylaxis: Sub-Q Heparin (Unfractionated) VTE Mechanical Devices: Intermittant Pneumatic CD Resuscitation Status: CPR: Attempt Resuscitation Time spent 60 minutes Attending Statement The patient was seen and examined together with Dr. Wyatt on 01/11/17 and I have added additional information to the note above. Soniya Wyatt DO Jan 11, 2017 15:34 Paz Alvarado DO Jan 17, 2017 13:08
[2017-01-11] MEDS: Heparin 5,000 Unit/mL Inj SUBQ SCH (19:32)
[2017-01-11] MEDS: oxyCODONE-Acetamin 5-325 mg Tablet PO PRN (19:33)
[2017-01-11] MEDS ORDERED: lamoTRIgine 100 mg Tablet PO SCH (21:00)
[2017-01-12] MEDS: oxyCODONE-Acetamin 5-325 mg Tablet PO PRN ×3 (02:58→15:27)
[2017-01-12 03:00] VITALS: BP 105/73; PULSE 85; RESP 16; O2SAT 93
[2017-01-12] MEDS: Heparin 5,000 Unit/mL Inj SUBQ SCH ×2 (03:08→12:18)
[2017-01-12 03:40] LABS: BASOPHILS % (AUTO) 0.3 % (0-3); EOSINOPHILS % (AUTO) 2.9 % (0-5); MONOCYTES % (AUTO) 10.3 % (4-12); Mean Corpuscular Hemoglobin 30.3 pg (27.0-35.0); Mean Corpuscular Volume 95.1 fL (81-100); NEUTROPHILS % (AUTO) 69.3 % (40-74); Platelet Count 292 bil/L (150-400)
[2017-01-12] MEDS ORDERED: HYDROmorphone 0.5 mg/0.5 mL iSecure Syringe IVPUSH PRN (03:40)
[2017-01-12] MEDS ORDERED: Promethazine 25 mg/mL Inj IM PRN (03:40)
[2017-01-12 08:50] VITALS: BP 115/69; PULSE 98; RESP 12; O2SAT 98
[2017-01-12 09:03] VITALS: PULSE 84
--- NOTE | 2017-01-12 12:07 | DRSVH ---
[facility] [address] [place] [address] Echocardiogram Report Name: RANDY CHILDERS Study Date: 01/12/2017 Height: 63 in Hospital Exam Location: [facility] Weight: 204 lb Gender: Female BSA: 2.0 m2 : 1960 Age: 56 yrs BP: 105/ 73 mmHg Reason For Study: F/U STRESS CARDIOMYOPATHY Ordering Physician: [facility] Performed By: Angelina Boone Referring Physician: Marcie Dickerson Interpretation Summary Limited Echo. 1) Normal left ventricular thickness, size, and systolic function (EF 55- 60%). 2) There is apical hypokinesis. 3) Normal right ventricular size and function. 4) No gross valvular abnormalities. 5) Compared to the Echo done 01/07/2017, no significant change. Procedure: The study quality was technically limited. The study quality was technically good. Comparison is made with the echocardiogram of 01/07/17. The patient was in normal sinus rhythm during the exam. Left Ventricle: The left ventricle is normal in size, wall thickness, and systolic function without any focal wall motion abnormalities. A false chord is noted (normal variant). The ejection fraction is estimated to be 55-60%. Left ventricular systolic function is normal. There is apical mild hypokinesis. Right Ventricle: The right ventricle is normal in size, thickness and function. Great Vessels: The inferior vena cava was not well visualized. Pericardium/ Pleura There is no pericardial effusion. There is no pleural effusion. MMode/2D Measurements & Calculations LVIDd LV zamora. diameter/BSA (cm/m^2) LV sys. diameter/BSA (cm/m^2) : 4.4 cm LVIDs : 2.5 cm FS: 42.1 % IVSd : 0.9cm LVPWd : 0.8cm Reading Physician:12:06 PM
--- NOTE | 2017-01-12 13:29 | DRSVH ---
PROCEDURE: US RENAL SONOGRAM INDICATIONS: nephrolithiasis TECHNIQUE: Real-time scanning was performed of the kidneys and bladder, with image documentation. COMPARISON: [facility], US, US ARTERY LEG DPLX UNI RT, 01/08/2017, 16:12. FINDINGS: Kidneys: Kidneys are normal in size. Right kidney measures 10.0 cm long; left kidney measures 11.0 cm long. Right renal cortical thickness is 1.0 cm; left renal cortical thickness is 1.1 cm. Renal c ortical echotexture is normal. Ill-defined left upper renal pole calcifications. The larger left remy l calcifications seen on the CT from 01/11/2017 is not identified. Bladder: Pre-void bladder volume is 16 mL. Post-void residual is 0 mL. Pre-void images demonstrate no intraluminal masses or stones. Not identified. Miscellaneous: No free pelvic fluid. IMPRESSION: 1. Patient's known left renal calcifications are not identified likely due to technique. Interval res olution is highly unlikely. 2. No correlate for the patient's right lower quadrant clinical area of concern. 3. Mild cortical renal thinning. Dictated by: Samm Godinez M.D. on 01/12/2017 at 13:24 Approved by: Samm Godinez M.D. on 01/12/2017 at 13:27
[2017-01-12 16:06] VITALS: BP 93/56; PULSE 85; RESP 16; O2SAT 94
--- NOTE | 2017-01-12 18:33 | PCM.DIMED ---
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 If you still have some mild residual pain after a few days, you can take over the counter Naproxen. Do not take more than 1000 mg daily. Diet Discharge Diet: No restrictions, Heart Healthy Activity Discharge Activity: Other (Activity as tolerated) Call your provider Call your provider for: Fever or Chills, Shortness of breath, Bleeding, Chest pain, Vomitting, Excessive diarrhea, Weakness (unilateral) Patient Instructions Patient Instructions You presented to the hospital with complaints of right Lower quadrant abdominal pain that radiated to you belly button and to your right flank. We did an extensive workup to figure out what could be causing your pain. The CT of the chest, abdomen, and pelvis on 01/11/17 showed decrease in size of right retroperitoneal hematoma that was diagnosed during your last admission, after you underwent a heart catheterization. There was no evidence of active bleeding on the CT. In addition, your hemoglobin and hematocrit, remained stable throughout your stay. There was nothing else on the CT scan that could explain your abdominal pain. Given that you have a history of kidney stones, we also did an ultrasound of your kidneys to make sure that none of the stones have dislodged. That was also negative. In addition, you had no evidence of a urine infection. Given the nature of your abdominal pain and the physical exam that demonstrated muscle tightness in that region, it is likely that your pain is musculoskeletal. As you indicated, you over exerted yourself physically after you were discharge last time from the hospital. That might have exacerbated your pain. You responded well to Toradol and we can send you home with a short course until your pain subsides or is minimal. Once you run out of Toradol, you can take Naproxen over the counter as needed. If indicated, perhaps your primary care physician can refer you to Physical Therapy. We also did a repeat ultrasound of your heart because you were diagnosed with stress cardiomyopathy during the last time that you were admitted. Please keep your appointment with cardiology that was arranged during your last admission and follow-up with them. We are not making any changes to your heart medications so please take them as previously indicated. 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 There is no urgent concern for this at this time. However, radiology recommends a followup study may be performed in 12 months to demonstrate stability if clinically indicated. Follow-up plan Please follow up with primary care doctor in 1 week and keep your follow-up appointment with Cardiology Follow-up Provider: Martin Eller MD Follow-up with PCP in: 1 week Provider: PERI AGUILAR [facility] Follow-up in: 1 week Paz Alvarado DO 01/13/17 1726: Soniya Wyatt DO Jan 12, 2017 18:33 Paz Alvarado DO Jan 13, 2017 17:26 -Today, EKG, showed sinus rhythm with heart rate 78 -Today, Troponin was elevated at 0.281. However, troponin when she was last admitted ranged from 0.04-0.436. -Cardiology suggested optimal medical therapy -Continue home medications which include: aspirin 81 mg, atorvastatin 40 mg, carvedilol 3.125 mg by mouth twice a day -Cardiology (Dr. Madedn) suggested repeat ECHO Right retroperitoneal hematoma, acute, ongoing -Following cardiac catheterization on 01/07/17 -CT of the chest, abdomen, and pelvis on 01/11/17 showed Decrease in size of right retroperitoneal hematoma. No evidence of active extravasation. No evidence aortic dissection or aneurysm - H&H hemoglobin 10.2 and hematocrit 32.5, stable from discharge Multiple staghorn stones in left kidney, present on admission, ongoing -Found incidentally on CT 01/08/17 -Patient complaining of Right flank pain -Ordered a renal ultrasound to make sure that stones have not dislodged Small port hypodensity in the body of the pancreas likely representing a small side branch IPMN, present on admission, ongoing -Found incidentally on CT 01/11/17 -Lipase was normal at 22 -Radiology recommends A followup study may be performed in 12 months to demonstrate stability if clinically indicated History of SMAD3/Loeys-Lavonne Syndrome, chronic, presumed stable - Strong family history of early onset secondary to complications of aneurysms and dissections -Patient has history of TIAs with PFO - Followed by Dr. 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
[2017-01-12] MEDS ORDERED: KETO10TA PO (18:47)
--- NOTE | 2017-01-12 19:56 | PCM.DC.MED ---
Discharge Summary Date of Service Jan 12, 2017 Dates of Hospitalization Date of Hospital Admission Jan 11, 2017 at 15:30 Date of Discharge: Jan 12, 2017 Providers: Admitting Physician: Paz Alvarado DO Primary Care Physician: Martin Eller MD Attending Physician: Paz Alvarado DO Diagnosis at Time of Discharge Diagnosis at Time of Discharge Acute Abdominal pain, likely secondary to musculoskeletal etiology, present on admission, resolved Acute Stress Cardiomyopathy, present on admission. Ongoing. Right retroperitoneal hematoma, present on admission. Ongoing. Multiple staghorn stones in left kidney, present on admission. Ongoing. Small port hypodensity in the body of the pancreas likely representing a small side branch IPMN, Intraductal Papillary Mucinous Neoplasm, present on admission. Ongoing. History of SMAD3/Loeys-Lavonne Syndrome, present on admission. Presumed stable History of bipolar disorder, present on admission. Presumed stable Procedures XRay, CTs & MRIs Renal Ultrasound: IMPRESSION: 1. Patient's known left renal calcifications are not identified likely due to technique. Interval resolution is highly unlikely. 2. No correlate for the patient's right lower quadrant clinical area of concern. 3. Mild cortical renal thinning. Dictated and Approved by: Samm Godinez M.D. on 01/12/2017 at 13:24 PROCEDURE: CT ANGIO CHEST ABDOMEN AND PELVIS on 01/11/2017 IMPRESSION: 1. Decrease in size of right retroperitoneal hematoma. No evidence of active extravasation. 2. No evidence aortic dissection or aneurysm. 3. Small port hypodensity in the body of the pancreas likely representing a small side branch IPMN. A followup study may be performed in 12 months to demonstrate stability if clinically indicated. Dictated and Approved by: Abdirizak Marques M.D. on 01/11/2017 at 12:[address] on 01/08/[address]: [address] aortogram. 2. Multiple staghorn stones in left kidney. No hydronephrosis. 3. Two low density hepatic masses in the right hepatic lobe, most likely hepatic hemangiomas or cysts. 4. A 2 mm nodule in the right middle lobe. Please followup recommendation. 5. Small hiatal hernia. IMPRESSION: 1. Moderate to large right retroperitoneal hematoma extending from the inguinal region into the pelvis and lower abdomen. No definite evidence of active arterial extravasation or pseudoaneurysm. Findings were discussed with Dr. Wyatt on 01/08/17 at 12:20 PM. 2. Extensive left nephrolithiasis redemonstrated without obstructive uropathy. ECG 12 Lead EKG in ED shows normal sinus rhythm with heart rate of 78 Cardiac Echo Impression Repeat ECHO on 01/12/17 Interpretation Summary Limited Echo. 1) Normal left ventricular thickness, size, and systolic function (EF 55- 60%). 2) There is apical hypokinesis. 3) Normal right ventricular size and function. 4) No gross valvular abnormalities. 5) Compared to the Echo done 01/07/2017, no significant change. Echo on 01/07/2017 Interpretation Summary 1) Normal left ventricular thickness, size, and systolic function (EF 55- 60%). 2) There is apical hypokinesis. 3) Normal right ventricular size and function. 4) No significant valvular abnormalities. 5) No prior Echo available for comparison. Findings consistent with ischemic heart disease. Other Diagnostics Cardiac catheterization on 01/07/2017 CONCLUSIONS: 1. Coronary Angiogram -- Normal coronary arteries (see comments below). 2. Elevated LVED. 3. 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 Other Diagnostics Cardiac catheterization on 01/07/17: FINDINGS: 1. LMCA: Normal. The left main coronary artery is a large vessel with no angiographically evident disease. 2. LAD: Normal. The left anterior descending coronary artery is a large transapical vessel with no angiographic obstruction and no evident atherosclerotic plaquing. The Mid LAD gives a moderate-sized Diagonal. 3. LCX: Normal. The left circumflex coronary artery has no angiographic obstruction or evident atherosclerotic plaquing. 4. RCA: Dominant. No evident angiographic obstruction (see comments below). The right coronary artery is a moderate-size vessel with small PDA and small to moderate-sized RPLB. Overall the right coronary artery has no angiographic obstructive disease; or atherosclerotic obstruction(CARLOS MANUEL-3 flow). 5. LHC: LVED 23 mmHg; and no systolic gradient on pullback across the aortic valve. 6. LVG: Left ventriculogram shows overall normal to vigorous LV global systolic function. There is a small unusual appearing focal inferoapical dyskinetic segment. No MR. CONCLUSIONS: 1. Coronary Angiogram -- Normal coronary arteries (see comments below). 2. Elevated LVED. 3. 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 Brief History Mrs. 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 She describes the pain as sharp and achy, which awoke her from sleep around 3 AM. She felt that she was feeling better after being discharged on 01/09/17 until last night when the pain became more constant. She admits to pushing herself more physically and increasing her activity after discharge. She notes that the pain is a 4 out of 10, radiating to her umbilicus as well as her flank and lower back. The pain is exacerbated by coughing, moving, and touching. She states that the pain is only minimally relieved by oxycodone and that the pain is not affected by oral intake; however she notes that she has had increased hiccups. She denies any recent trauma to the abdominal area. She reports that she has had an episode of diarrhea this morning because she took magnesium citrate because she was afraid that straining would worsen her abdominal pain. Patient was recently admitted to [facility] from 01/06/2017 to 06/2016 for NSTEMI. 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 Cardiology suggested optimal medical therapy including consider ASA; statin; and beta-marvin; and followup echo to consider resolution of her wall motion defect. After the cardiac catheterization, patient developed right retroperitoneal hematoma but CT of the abdomen and pelvis showed no evidence of active arterial extravasation or pseudoaneurysm. Surgery was consulted and assessed the patient. Patient was observed overnight with serial H&H those remained stable throughout the duration of her hospitalization. Hospital Course Mrs. 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 After the cardiac catheterization, patient developed right retroperitoneal hematoma but CT of the abdomen and pelvis showed no evidence of active arterial extravasation or pseudoaneurysm. Her hemoglobin and hematocrit have remained stable after discharge. CT of the chest, abdomen, and pelvis on 01/11/17 showed decrease in size of right retroperitoneal hematoma without evidence of active extravasation, aortic dissection or aneurysm. Patient was given IV Dilaudid to help minimize pain but had minimal relief. Patient was admitted into observation to workup intractable abdominal pain. CT and renal ultrasound were negative for any causes of acute abdominal pain. Physical exam reveals tight musculature around area pain with relief of pain and changes in the musculature after OMT. Patient responded well to Toradol and noted significant improvement in her pain. She states that the pain felt similar to when she had a . Based on negative work-up, physical findings and description of symptoms, it is likely that the abdominal pain is musculoskeletal in etiology. Patient will go home with a short course of Toradol prn pain. Acute Abdominal pain, present on admission, improved -possible causes include: renal stones, musculoskeletal pain from increased activity with retroperitoneal hematoma, referred cardiac pain -Patient notes that her pain is similar to the pain she experienced when she had her -Vital signs in the ED include temperature of 36.9, pulse 92, respiratory rate 18, blood pressure 126/93 and 96% on room air. -Patient was given IV Dilaudid to help minimize pain but had minimal relief. -CT of the chest, abdomen, and pelvis on 01/11/17 showed Decrease in size of right retroperitoneal hematoma. No evidence of active extravasation. No evidence aortic dissection or aneurysm. -Lipase was normal at 22. Small port hypodensity in the body of the pancreas likely representing a small side branch IPMN. - Urinalysis was negative. Wound culture showed no growth -Multiple staghorn stones in left kidney Found incidentally on CT. Renal ultrasound showed no evidence of dislodged -Toradol relieved her pain. We will discharge her with a short course of Toradol prn pain. -Based on negative work-up, physical findings and description of symptoms, it is likely that the abdominal pain is musculoskeletal in etiology. Acute Stress Cardiomyopathy, present on admission, ongoing -Cardiac Catheterization on 01/07/17 showed evidence of focal wall motion defect likely consistent with atypical stress cardiomyopathy. -Today, EKG, showed sinus rhythm with heart rate 78 -Today, Troponin was elevated at 0.281. However, troponin when she was last admitted ranged from 0.04-0.436. -Cardiology suggested optimal medical therapy -Continue home medications which include: aspirin 81 mg, atorvastatin 40 mg, carvedilol 3.125 mg by mouth twice a day -Cardiology (Dr. Madden) suggested repeat ECHO. Repeat ECHO on 01/12/17 shows no significant change from prior echo. -Continue to follow-up with cardiology as an outpatient Right retroperitoneal hematoma, acute, ongoing -Following cardiac catheterization on 01/07/17 -CT of the chest, abdomen, and pelvis on 01/11/17 showed Decrease in size of right retroperitoneal hematoma. No evidence of active extravasation. No evidence aortic dissection or aneurysm - On admission, H&H hemoglobin 10.2 and hematocrit 32.5, stable from discharge -Upon discharge, H&H improved to 10.6/33.3 Multiple staghorn stones in left kidney, present on admission, ongoing -Found incidentally on CT 01/08/17 -Patient complaining of Right flank pain -Renal ultrasound showed no evidence of dislodged stones Small port hypodensity in the body of the pancreas likely representing a small side branch IPMN, present on admission, ongoing -Found incidentally on CT 01/11/17 -Lipase was normal at 22 -Radiology recommends A followup study may be performed in 12 months to demonstrate stability if clinically indicated History of SMAD3/Loeys-Lavonne Syndrome, chronic, presumed stable - Strong family history of early onset secondary to complications of aneurysms and dissections -Patient has history of TIAs with PFO - Followed by Dr. Hernandez at [facility] - Patient reports normal imaging over recent years - Denies any history of cardiac abnormalities including of the aorta - Patient does report history of 2 brain aneurysms which were secondary to her underlying syndrome History of bipolar disorder, chronic, presumed stable - Continue home medications Exam Vital Signs (Last) Date Time Temp Pulse Resp B/P Pulse Ox O2 Delivery O2 Flow Rate FiO2 01/12/17 16:06 36.8 85 16 93/56 94 Room Air Exam General: Patient is an obese female lying on bed, AAOX3, no acute distress HEENT: head normocephalic and atraumatic, PERRLA, EOMI, no scleral icterus, noninjected conjunctiva Neck: neck supple, non-tender, no lymphadenopathy, trachea midline, no JVD CV: regular rate and rhythm, s1 and s2 heard, no murmur, radial pulses 2+ and equal bilaterally, no rubs murmurs or gallops, no edema Lungs: Clear to auscultation bilaterally, no wheezes, rales or rhonchi, no increased work of breathing Abdomen: normoactive bowel sounds on 4Q, soft, non-distended, tender to palpation of the RLQ, musculature surrounding area and lower back are tight and tender to palpation Skin: warm and dry, tattoos on UE bilaterally, right groin angiogram site, small ecchymosis but no evidence of or hematoma or bleeding Musculoskeletal: 5/5 UE and LE strength bilaterally, full ROM bilaterally Neuro: Grossly neurologically intact, cranial nerves II through XII intact, no dyskinesia, Psych: Normal mood and affect Test 01/11/17 09:45 01/11/17 11:00 01/12/17 03:25 Prothrombin Time 9.9sec (8.1-12.5) Prothromb Time International Ratio 0.93ratio Magnesium Level 2.3mg/dL (1.6-2.6) Troponin T 0.281ug/L (0.0-0.011) Lipase 22U/L (13-60) Hold Shields Top Tube Received (Received) Urine Color Yellow (YELLOW) Urine Appearance Clear (CLEAR,HAZY) Urine pH 6.0 (5.0-8.0) Urine Specific [place] 1.014 (1.003-1.035) Urine Protein Negativemg/dL (NEG,TRACE) Urine Glucose (UA) Negativemg/dL (NEGATIVE) Urine Ketones Negativemg/dL (NEGATIVE) Urine Occult Blood Negative (NEGATIVE) Urine Nitrite Negative (NEGATIVE) Urine Bilirubin Negative (NEGATIVE) Urine Urobilinogen Normalmg/dL (NORMAL) Urine Leukocyte Esterase Negative (NEGATIVE) Urine RBC 0-2/hpf (0-2) Urine WBC 0-5/hpf (0-5) Urine Epithelial Cells Few/hpf (NONE-MOD) Urine Crystals None seen (NONE SEEN) Urine Bacteria Few/hpf (NONE-FEW) Urine Hyaline Casts None/lpf (NONE) Urine Granular Casts None seen (NONE SEEN) Urine Waxy Casts None seen (NONE SEEN) Urine Red Blood Cell Casts None seen (NONE SEEN) Urine White Blood Cell Casts None seen (NONE SEEN) Urine Mucus None seen (None Seen) Urine Trichomonas None seen (NONE SEEN) Urine Yeast None (NONE SEEN) Urinalysis Comment None Urine Culture Reflexed Not indicated White Blood Count 10.6th/mm3 (3.8-10.1) Red Blood Count 3.50mil/mm3 (3.90-5.20) Hemoglobin 10.6g/dL (12.0-15.6) Hematocrit 33.3% (35.0-46.0) Mean Corpuscular Volume 95.1fL (81-100) Mean Corpuscular Hemoglobin 30.3pg (27.0-35.0) Mean Corpuscular Hemoglobin Concent 31.8% (32.0-37.0) Red Cell Distribution Width 14.5% (12.3-15.4) Platelet Count 292bil/L (150-400) Neutrophils (%) (Auto) 69.3% (40-74) Lymphocytes (%) (Auto) 16.9% (14-46) Monocytes (%) (Auto) 10.3% (4-12) Eosinophils (%) (Auto) 2.9% (0-5) Basophils (%) (Auto) 0.3% (0-3) Sodium Level 140mEq/L (134-144) Potassium Level 4.8mEq/L (3.5-5.2) Chloride Level 104mEq/L (97-108) Carbon Dioxide Level 22mmol/L (18-29) Blood Urea Nitrogen 8mg/dL (6-24) Creatinine 0.49mg/dL (0.57-1.00) Estimat Glomerular Filtration Rate 189mL/min (>59) Glucose Level 109mg/dL (60-99) Lactic Acid Level 0.7mmol/L (0.4-2.0) Calcium Level 8.4mg/dL (8.5-10.1) Total Bilirubin 0.4mg/dL (0.0-1.2) Aspartate Amino Transf (AST/SGOT) 15U/L (0-50) Alanine Aminotransferase (ALT/SGPT) 11U/L (0-32) Alkaline Phosphatase 93U/L (25-150) Total Protein 6.1g/dL (6.4-8.4) Albumin 3.5g/dL (3.4-5.0) Procalcitonin 0.05ng/mL (0.00-0.08) Discharge Medications Discharge Medications Aspirin (Aspirin) 81 Mg Tablet 81 MG PO HS (Reported) Atorvastatin Calcium (Atorvastatin Calcium) 40 Mg Tablet 40 MG PO HS Prescribed by: Manda STATON Carvedilol (Carvedilol) 3.125 Mg Tablet 3.125 MG PO BID Prescribed by: Manda STATON Ketorolac Tromethamine (Ketorolac Tromethamine) 10 Mg Tablet 10 MG PO QID Prescribed by: Manda STATON Lamotrigine (Lamotrigine) 100 Mg Tablet 100 MG PO HS (Reported) Lurasidone (Latuda) 80 Mg Tablet 80 MG PO HS (Reported) Additional med instructions We will be sending you home with a short course of Toradol to help relieve your likely musculoskeletal pain. If you still have some mild residual pain after a few days, you can take over the counter Naproxen. Do not take more than 1000 mg daily. Followup Plan Disposition: Patient will discharge to home Follow-up plan Please follow up with primary care doctor in 1 week and keep your follow-up appointment with Cardiology Discharge Diet: No restrictions, Heart Healthy Discharge Activity: Other (Activity as tolerated) Patient Instructions You presented to the hospital with complaints of right Lower quadrant abdominal pain that radiated to you belly button and to your right flank. We did an extensive workup to figure out what could be causing your pain. The CT of the chest, abdomen, and pelvis on 01/11/17 showed decrease in size of right retroperitoneal hematoma that was diagnosed during your last admission, after you underwent a heart catheterization. There was no evidence of active bleeding on the CT. In addition, your hemoglobin and hematocrit, remained stable throughout your stay. There was nothing else on the CT scan that could explain your abdominal pain. Given that you have a history of kidney stones, we also did an ultrasound of your kidneys to make sure that none of the stones have dislodged. That was also negative. In addition, you had no evidence of a urine infection. Given the nature of your abdominal pain and the physical exam that demonstrated muscle tightness in that region, it is likely that your pain is musculoskeletal. As you indicated, you over exerted yourself physically after you were discharge last time from the hospital. That might have exacerbated your pain. You responded well to Toradol and we can send you home with a short course until your pain subsides or is minimal. Once you run out of Toradol, you can take Naproxen over the counter as needed. If indicated, perhaps your primary care physician can refer you to Physical Therapy. We also did a repeat ultrasound of your heart because you were diagnosed with stress cardiomyopathy during the last time that you were admitted. Please keep your appointment with cardiology that was arranged during your last admission and follow-up with them. We are not making any changes to your heart medications so please take them as previously indicated. 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 There is no urgent concern for this at this time. However, radiology recommends a followup study may be performed in 12 months to demonstrate stability if clinically indicated. Follow-up Provider: Martin Eller MD Follow-up with PCP in: 1 week Provider: PERI AGUILAR Follow-up in: 1 week Time spent Greater than 35 minutes Attending Statement The patient was seen and examined together with Dr. Wyatt on 01/12/2017 and I have added additional information to the note above. 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 There is no urgent concern for this at this time. However, radiology recommends a followup study may be performed in 12 months to demonstrate stability if clinically indicated. Follow-up Provider: Martin Eller MD Follow-up with PCP in: 1 week Provider: PERI AGUILAR Follow-up in: 1 week copies to: PERI AGUILAR; Martin Eller MD, Alexa N DO Jan 12, 2017 19:33
== END 2017-01-12 20:15 | disposition home or self-care (01) ==
LOC: SED 09:07 → PCC 15:30 → INTOOBSV 15:30 → PCC 16:00
PROVIDERS: ADMIT Neuromusculoskeletal Medicine & OMM; ATTEND Neuromusculoskeletal Medicine & OMM
DX: R10.31 Right lower quadrant pain (principal); I51.81 Takotsubo syndrome; N20.0 Calculus of kidney; Q87.89 Other specified congenital malformation syndromes, not elsewhere classified; F31.89 Other bipolar disorder; K66.1 Hemoperitoneum; R93.8 Abnormal findings on diagnostic imaging of other specified body structures; Z86.79 Personal history of other diseases of the circulatory system; Z86.73 Personal history of transient ischemic attack (TIA), and cerebral infarction without residual deficits; Z79.82 Long term (current) use of aspirin
CPT/HCPCS: 36415; 71275; 74174; 76770; 80053; 81000; 83605; 83690; 83735; 84145; 84484; 85025; 85610; 87086; 87088; 93005; 96361; 96372; 96374; 96375; 96376; 99285; C8924; G0378; J1170; J1644; J1885; J2405; J2550; J7030; Q9967

== ENCOUNTER 2017-01-15 08:59 | Emergency (ER) | payer OTHER ==
[~2017-01-15] VITALS: Ht 160 cm; Wt 90.9 kg
[~2017-01-15 08:59] MED LIST changes: +ASPI-973 PO; -ASPI81TA3 PO; +KETO10TA PO; -OXYC1TAB24 PO
[2017-01-15 09:03] VITALS: BP 103/54; PULSE 105; RESP 18; O2SAT 97
--- NOTE | 2017-01-15 09:38 | ED.REPORT ---
HPI-Chest Pain 40 and Over Date of Service Jan 15, 2017 ED Provider: Nguyễn Lopez MD Patient is a 56 year old female with a hx of Loeys-Lavonne syndrome, kidney stones , and recent NSTEMI with subsequent right retroperitoneal hematoma who presents to the ED complaining of palpitations accompanied by intermittent chest pain. Associated symptoms include worsening R sided pain that is intermittent and sharp. She denies fever, nausea, vomiting, dysuria, hematuria, or any other symptoms. Nursing Notes Stated Complaint: PAIN IN SIDE Chief Complaint: Chest Pain Nursing Notes Reviewed: Yes (weeSPIN not reconciled) Allergies: Coded Allergies: ondansetron (Verified Adverse Reaction, Intermediate, IV site immediately itched and burned., 01/12/17) Scheduled Aspirin (Aspirin) 81 Mg Tablet 81 MG PO HS Atorvastatin Calcium (Atorvastatin Calcium) 40 Mg Tablet 40 MG PO HS Carvedilol (Carvedilol) 3.125 Mg Tablet 3.125 MG PO BID Ketorolac Tromethamine (Ketorolac Tromethamine) 10 Mg Tablet 10 MG PO QID Lamotrigine (Lamotrigine) 100 Mg Tablet 100 MG PO HS Lurasidone (Latuda) 80 Mg Tablet 80 MG PO HS Scheduled PRN oxyCODONE-Acetaminophen 5-325 mg (oxyCODONE-Acetaminophen 5-325 mg) 1 Each Tablet 1 TAB PO Q6H PRN PRN For Pain General Time Seen by MD: 09:28 Chief Complaint Other (Palpitations ) Hx Obtained From: Patient Arrived By: Walk-in Sudden in Onset?: Yes Onset Occurred: Yesterday Symptom Duration: Intermittent Recent Healthcare: Recent doctor visit, Recent hospitalization Risk Factors )( CAD Risk Stratification No Diabetes mellitus, No Hyperlipidemia, No Hypertension Risk factors reviewed )( TAD Risk Stratification Loeys-Lavonne syndromeNo Hypertension, No Risk factors reviewed )( PE Risk Stratification No , No , No Previous DVT, No Previous PE Risk factors reviewed Past Medical History Past Medical History Notes: Admit for N STEMI 01/06/2017, readmitted the temporal fourth with acute stress cardiomyopathy, right retroperitoneal hematoma Past Medical History TIAs Bipolar Hx of brain aneurysms (one ruptured at 21 years old, 2 small ones currently) LoeysDietz syndrome (LDS) Pre-diabetic Kidney stones Pancreatic mass and module on lung Past Surgical History Breast augmentation with implant removal. Lithotripsy. Cardiac catheterization 01/07/2017 revealed normal coronary arteries, elevated LVED and focal inferoapical dyskinesis thought to be a typical stress cardiomyopathy Reports: Smoking History Never Smoker Social History Alcohol Use: "Social" Drug Use: Denies drug use, THC Ambulatory Status Independent Review of Systems Review of Systems Note: +R sided pain Constitutional: Denies: Fever Cardiovascular: Reports: Chest pain, Palpitations GI: Denies: Nausea, Vomiting Complete sys rev & neg: except as marked. Female: Denies: Dysuria Male: Denies Hematuria Physical Exam Initial Vital Signs Vital Signs (First) Date Time Temp Pulse Resp B/P Pulse Ox O2 Delivery O2 Flow Rate FiO2 01/15/17 09:03 37 105 18 103/54 97 Room Air Initial VS: Reviewed, Vital signs abnormal (repeat HR normal) Head / Eyes: Atraumatic, Normocephalic Neck: Supple, Full range of motion Skin: Warm, Dry Neurologic: Alert, Oriented, Nonfocal Psychiatric: Mood/affect normal, Behavior normal, Normal thought content General/Constitutional: Awake, Alert Behavior: Positive: Anxious Respiratory / Chest: Atraumatic, Breath sounds NL, Breath sounds = bilat, No respiratory distress Cardiovascular: Peripheral circulation NL Abdomen: Atraumatic, Soft, Non-tender Interpretation & Diagnostics Lab Results Interpretation Result Diagram: 01/15/17 0935 01/15/17 0935 Test 01/15/17 09:35 White Blood Count 10.6th/mm3 (3.8-10.1) Red Blood Count 3.85mil/mm3 (3.90-5.20) Hemoglobin 11.5g/dL (12.0-15.6) Hematocrit 35.9% (35.0-46.0) Mean Corpuscular Volume 93.2fL (81-100) Mean Corpuscular Hemoglobin 29.9pg (27.0-35.0) Mean Corpuscular Hemoglobin Concent 32.0% (32.0-37.0) Red Cell Distribution Width 13.9% (12.3-15.4) Platelet Count 420bil/L (150-400) Neutrophils (%) (Auto) 76.1% (40-74) Lymphocytes (%) (Auto) 12.0% (14-46) Monocytes (%) (Auto) 8.5% (4-12) Eosinophils (%) (Auto) 2.8% (0-5) Basophils (%) (Auto) 0.4% (0-3) Sodium Level 137mEq/L (134-144) Potassium Level 4.0mEq/L (3.5-5.2) Chloride Level 100mEq/L (97-108) Carbon Dioxide Level 21mmol/L (18-29) Blood Urea Nitrogen 15mg/dL (6-24) Creatinine 0.61mg/dL (0.57-1.00) Estimat Glomerular Filtration Rate 146mL/min (>59) Glucose Level 119mg/dL (60-99) Calcium Level 8.6mg/dL (8.5-10.1) Magnesium Level 2.3mg/dL (1.6-2.6) Total Bilirubin 0.6mg/dL (0.0-1.2) Aspartate Amino Transf (AST/SGOT) 13U/L (0-50) Alanine Aminotransferase (ALT/SGPT) 10U/L (0-32) Alkaline Phosphatase 102U/L (25-150) Troponin T 0.010ug/L (0.0-0.011) Total Protein 7.5g/dL (6.4-8.4) Albumin 3.7g/dL (3.4-5.0) Lab Results Interpretation: CBC normal, no significant anemia CMP normal ECG Interpretation ECG Interpretation: sinus rate 96 Q waves inferiorly - unchanged from Jan 11 Time: 09:23 Interpreted by: ED physician X-Ray Chest Interpretation Chest Xray Interpretation: IMPRESSION: 1. No acute cardiopulmonary disease. Dictated by: Abdirizak Marques M.D. on 01/15/2017 at 9:40 Approved by: Abdirizak Marques M.D. on 01/15/2017 at 9:41 View: Portable, 1 view Interpretation / Wet Read by: Interpret - Radiologist CT Abd / Pelvis Interpretation IMPRESSION: 1. Unchanged size and appearance of the right-sided retroperitoneal hematoma. 2. No new intra-abdominal/pelvic abnormalities are identified to explain the patient's increasing right-sided pain. The appendix is normal. 3. No bowel obstruction or bowel inflammation. Dictated by: Vijay Moreira M.D. on 01/15/2017 at 10:23 Approved by: Vijay Moreira M.D. on 01/15/2017 at 10:32 Study type: Abdominal CT IV contrast Interpretation / Wet Read by: Interpret - Radiologist Re-Eval/Medical Decision Med Decision/Clinical Course This is a 56-year-old female returns to the emergency department complaining of some palpitations, but mainly worsening right-sided abdominal pain. 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 Procedures, was complicated by a retroperitoneal hematoma seen on CT scan. The patient reports been taking NSAIDs, pain is much worse, she was told to show last for a day or 2 , she could not sleep and the symptoms are uncontrolled hypertension she return to the ED. Department the patient is anxious, but generally well-appearing. She is in normal sinus rhythm, no skin changes are evident EK PEG. No nipping at dysrhythmic events are identified. She has mild tenderness in the right side of the abdomen, without guarding or rebound. Obese imaging was reviewed including ultrasound-negative for pseudoaneurysm. The worsening pain, repeat CT imaging was obtained to reevaluate the retroperitoneal hematoma, which remains unchanged but moderately sizable. No other cause of pain was identified. Labs were normal. She is reassured received some pain medicine. She is receiving some oxycodone for pain control, and is discharged in stable condition with advice to follow- up with her PCP next week for another recheck. A dangerous cause of the patient's sense of palpitations has not been identified. I do not find indication for additional testing at this time. Patient had no dysrhythmias or ectopy during her ED evaluation. Source of Hx: Old records Time of Eval: 12:02 Re-Evaluation/Progress Note: Discussed plan for discharge. Patient understands and agrees with plan. All questions addressed at this time. Differential Diagnosis: Negative: Acute coronary syndrome, Acute myocardial infarct, Esophageal rupture, Gun shot wound chest, Pleurisy, Pneumomediastinum, Pneumonia, Pneumothorax, Pulmonary edema, Pulmonary embolism, Stab wound chest Counseled Regarding: Diagnosis, Lab results, Need for follow-up, When/why to return to ED Discharge & Departure Primary Impression: Retroperitoneal hematoma Disposition: Home Discharge Condition All VS Reviewed: Yes Condition: Stable Additional Instructions: 1. Your pain appears to be due to the retroperitoneal hematoma (bruising) from your procedure. Your tests were otherwise normal. 2. Symptoms are expected to resolve with time, although it is difficult to predict exactly how long it will take (days to a week or so is my guess). 3. Activities as tolerated. 4. IF needed for severe pain you can take oxycodone/APAP 5/325 1-2 tabs up to every 6 hours. Note: This medication contains narcotic and causes drowsiness, no driving for at least 4-6 hours after taking. Use sparingly, and only if needed. 5. Follow-up with Dr. Eller next week Referrals: Martin Eller MD (PCP) Fátimaibe Attestation Portions of this note were transcribed by Benjamin Hameed. I, Dr. Lopez personally performed the history, physical exam and medical decision-making; I reviewed and confirmed the accuracy of the information in the transcribed note. Signed by: Cris Mas, 01/15/17 copies to: Martin Eller MD, Matthew F MD Jan 15, 2017 09:38 BENJAMIN HAMEED Jan 15, 2017 09:46
--- NOTE | 2017-01-15 09:42 | DRSVH ---
PROCEDURE: X-RAY CHEST ONE VIEW, PORTABLE ([id number]) INDICATIONS: Chest pain TECHNIQUE: One view of the chest was acquired. COMPARISON: [facility], CR, XR CHEST 1VW (PORTABLE), 01/06/2017, 19:29. FINDINGS: Surgical changes and devices: None. Lungs and pleura: No pleural effusions or pneumothorax. Lungs are clear. Mediastinum: Mediastinal contours appear normal. Heart size is normal. Bones and chest wall: No suspicious bony lesions. Overlying soft tissues appear unremarkable. IMPRESSION: 1. No acute cardiopulmonary disease. Dictated by: Abdirizak Marques M.D. on 01/15/2017 at 9:40 Approved by: Abdirizak Marques M.D. on 01/15/2017 at 9:41
[2017-01-15 09:48] LABS: BASOPHILS % (AUTO) 0.4 % (0-3); EOSINOPHILS % (AUTO) 2.8 % (0-5); MONOCYTES % (AUTO) 8.5 % (4-12); Mean Corpuscular Hemoglobin 29.9 pg (27.0-35.0); Mean Corpuscular Volume 93.2 fL (81-100); NEUTROPHILS % (AUTO) 76.1 % (40-74); Platelet Count 420 bil/L (150-400)
[2017-01-15] MEDS ORDERED: Ondansetron 2 mg/mL 2 mL Inj IVPUSH ONE (10:00)
[2017-01-15 10:09] LABS: TROPONIN T 0.01 ug/L (0.0-0.011)
[2017-01-15 10:20] LABS: Magnesium 2.3 mg/dL (1.6-2.6)
[2017-01-15] MEDS ORDERED: Promethazine Inj 12.5 MG in Dextrose 5%-Pha MIX 50 ML IV ONE (10:20)
[2017-01-15] MEDS: HYDROmorphone 0.5 mg/0.5 mL iSecure Syringe IVPUSH PRN ×2 (10:28→11:08)
[2017-01-15 10:29] VITALS: BP 116/70; PULSE 100; RESP 19; O2SAT 98
[2017-01-15 11:07] VITALS: BP 122/62; PULSE 97; RESP 14; O2SAT 96
--- NOTE | 2017-01-15 11:33 | DRSVH ---
PROCEDURE: CT ABDOMEN AND PELVIS WITH CONTRAST ([id number]) INDICATIONS: Inc R side pain, f/u retroperitoneal hematoma TECHNIQUE: After the administration of intravenous contrast, 5 mm thick sections acquired from the diaphragm to the symphysis. 5 mm coronal and sagittal reformats were acquired. For radiation dose reduction, the following was used: automated exposure control, adjustment of mA and/or kV according to patient shahriar campo COMPARISON: [facility], CT, CT ANGIO CHEST ABD PELVIS, 01/11/2017, 11:18. FINDINGS: Image quality: Excellent. ABDOMEN: Lung bases: Lung bases are clear. Heart size is normal. Solid organs: The liver, spleen, adrenals, kidneys, and pancreas are unchanged. Hepatic cysts and le ft renal calcifications are again noted. There is no hydronephrosis of the kidneys. Peritoneum and bowel: There is a small hiatal hernia. Otherwise, the stomach and small bowel loops a re nondistended. Distal colonic diverticulosis is present. There is moderate residual stool identif ied within the proximal colon. No bowel inflammation or mesenteric inflammation is evident surroundi ng the bowel loops to suggest colitis or enteritis. No loculated intraperitoneal fluid collections o r free fluid is evident. No free air is identified. Nodes and vessels: No retroperitoneal or mesenteric adenopathy by size criteria. Aorta and inferior vena cava are normal in size. No obvious aneurysms are pseudoaneurysms are evident involving the im aged portions of the right common femoral artery, right external iliac artery, or aorta. Miscellaneous: The patient's known right-sided retroperitoneal hematoma has not increased in size sin ce the previous exam. No evidence to suggest active extravasation is identified. Heterogeneous high attenuation fluid is seen within the right pelvic retroperitoneum that partially extends into the ri ght paracolic gutter. There is also mild hematoma seen within the periaortic region. Bones: Image osseous structures of the abdomen are unchanged. No fractures or suspicious osseous les ions. PELVIS: Genitourinary: Bladder wall thickness is normal. The uterus and ovaries are not enlarged. Miscellaneous: The patient's known right-sided retroperitoneal pelvic hematoma is unchanged in size and appearance. No loculated fluid collections are evident. No evidence to suggest active extravasa tion is appreciated. A small amount of fluid is seen within the peritoneal cavity, as well. No free air is identified. No inguinal hernias or adenopathy. Bones: No suspicious bony lesions. No vertebral body compression fractures. IMPRESSION: 1. Unchanged size and appearance of the right-sided retroperitoneal hematoma. 2. No new intra-abdominal/pelvic abnormalities are identified to explain the patient's increasing ri ght-sided pain. The appendix is normal. 3. No bowel obstruction or bowel inflammation. Dictated by: Vijay Moreira M.D. on 01/15/2017 at 10:23 Approved by: Vijay Moreira M.D. on 01/15/2017 at 10:32
[2017-01-15] MEDS ORDERED: OXYC1TAB24 PO (12:19)
[2017-01-15 12:37] VITALS: BP 114/71; PULSE 97; RESP 20; O2SAT 95
== END 2017-01-15 12:38 | disposition home or self-care (01) ==
LOC: SED 08:59
DX: K66.1 Hemoperitoneum (principal); R00.2 Palpitations; R07.9 Chest pain, unspecified; F31.9 Bipolar disorder, unspecified; R73.03 Prediabetes; Z86.73 Personal history of transient ischemic attack (TIA), and cerebral infarction without residual deficits; Z87.442 Personal history of urinary calculi; Z95.5 Presence of coronary angioplasty implant and graft; Z98.890 Other specified postprocedural states; Z79.82 Long term (current) use of aspirin; Z88.8 Allergy status to other drugs, medicaments and biological substances
CPT/HCPCS: 36415; 71010; 74177; 80053; 83735; 84484; 85025; 93005; 96374; 96376; 99285; J1170; Q9967

== ENCOUNTER 2017-01-30 15:47 | Emergency (ER) | payer OTHER ==
[~2017-01-30] VITALS: Ht 160 cm; Wt 89.1 kg
[~2017-01-30 15:47] MED LIST changes: +OXYC1TAB24 PO
[2017-01-30 16:15] VITALS: BP 109/60; PULSE 66; RESP 16; O2SAT 97
--- NOTE | 2017-01-30 16:49 | DRSVH ---
PROCEDURE: X-RAY LEFT FOOT COMPLETE, MINIMUM THREE VIEWS ([id number]) INDICATIONS: injury TECHNIQUE: 3 views of the foot were acquired. COMPARISON: [facility], CR, XR ANKLE 3VW LT, 01/30/2017, 16:31. FINDINGS: Bones: No fractures or dislocations. No suspicious bony lesions. Soft tissues: No tibiotalar joint effusion. Achilles tendon appears normal. IMPRESSION: No visualized acute fracture or dislocation. However, if clinical concern and/or pain pe rsist, short interval imaging followup in 7-10 days is recommended, as occult injury cannot be defini tively excluded. Dictated by: Chiara Bynum M.D. on 01/30/2017 at 16:47 Approved by: Chiara Bynum M.D. on 01/30/2017 at 16:48
--- NOTE | 2017-01-30 16:50 | DRSVH ---
PROCEDURE: X-RAY LEFT ANKLE, MINIMUM THREE VIEWS ([id number]) INDICATIONS: injury TECHNIQUE: 3 views of the ankle were acquired. COMPARISON: [facility], CR, XR FOOT 3VW LT, 01/30/2017, 16:31. FINDINGS: Bones: No fractures or dislocations. Ankle mortise is normally aligned. No suspicious bony lesions . Soft tissues: No tibiotalar joint effusion. Achilles tendon appears normal. IMPRESSION: No visualized acute fracture or dislocation. However, if clinical concern and/or pain pe rsist, short interval imaging followup in 7-10 days is recommended, as occult injury cannot be defini tively excluded. Dictated by: Chiara Bynum M.D. on 01/30/2017 at 16:48 Approved by: Chiara Bynum M.D. on 01/30/2017 at 16:49
--- NOTE | 2017-01-30 17:13 | ED.REPORT ---
HPI-Extremity Problem Lower Date of Service Jan 30, 2017 ED Provider: Chidi Olivarez MD Patient is a 56 year old female who presents to the ED complaining of left ankle pain onset two hours ago. Associated symptoms include pain that radiates up her leg. The patient reports that she tripped and landed on her foot. She felt a "pop" when it happened with a sharp and shooting pain in her ankle. The patient reports difficulty walking secondary to pain. She has no other complaints at this time. Nursing Notes Stated Complaint: INJURY TO LEFT LEG AND ANKLE Chief Complaint: Extremity Trauma Nursing Notes Reviewed: Yes Allergies: Coded Allergies: ondansetron (Verified Adverse Reaction, Intermediate, IV site immediately itched and burned., 01/30/17) Scheduled Aspirin (Aspirin) 81 Mg Tablet 81 MG PO HS Atorvastatin Calcium (Atorvastatin Calcium) 40 Mg Tablet 40 MG PO HS Carvedilol (Carvedilol) 3.125 Mg Tablet 3.125 MG PO BID Ketorolac Tromethamine (Ketorolac Tromethamine) 10 Mg Tablet 10 MG PO QID Lamotrigine (Lamotrigine) 100 Mg Tablet 100 MG PO HS Lurasidone (Latuda) 80 Mg Tablet 80 MG PO HS Scheduled PRN oxyCODONE-Acetaminophen 5-325 mg (oxyCODONE-Acetaminophen 5-325 mg) 1 Each Tablet 1 TAB PO Q6H PRN PRN For Pain General Time Seen by MD: 17:13 Chief Complaint Ankle injury left, Foot injury left Hx Obtained From: Patient Arrived By: Walk-in Onset Occurred: 1 - 4 hours ago Symptom Duration: Since onset Caused by: Accidental Location: : Ankle left: Leg left Quality: Painful Severity: Current: Moderate Associated with: Reports: "Pop" felt or heard Exacerbated by: Range of motion, Movement Similar Sx Previous: No Past Medical History Past Medical History Notes: Admit for N STEMI 01/06/2017, readmitted the temporal fourth with acute stress cardiomyopathy, right retroperitoneal hematoma Past Medical History TIAs Bipolar Hx of brain aneurysms (one ruptured at 21 years old, 2 small ones currently) LoeysDietz syndrome (LDS) Pre-diabetic Kidney stones Pancreatic mass and module on lung Past Surgical History Breast augmentation with implant removal. Lithotripsy. Cardiac catheterization 01/07/2017 revealed normal coronary arteries, elevated LVED and focal inferoapical dyskinesis thought to be a typical stress cardiomyopathy Reports: Smoking History Never Smoker Social History Alcohol Use: "Social" Drug Use: Denies drug use, THC Other Social History: Good social support Ambulatory Status Independent Review of Systems Musculoskeletal: Reports: Extremity pain Neurologic: Reports: Problem walking Complete sys rev & neg: except as marked. Physical Exam Initial Vital Signs Vital Signs (First) Date Time Temp Pulse Resp B/P Pulse Ox O2 Delivery O2 Flow Rate FiO2 01/30/17 16:15 36.7 66 16 109/60 97 Room Air Initial VS: Reviewed Lower Extremity / Pelvis / MS: Atraumatic, Inspection NL, Neurologic intact, Vascular intact Ankle / Foot: No swelling, Neurologic intact, Vascular intact tender over the left calcaneus no laxity General/Constitutional: Awake, Alert Respiratory / Chest: Atraumatic, No respiratory distress Skin: Atraumatic, Color NL, No rash, Warm, Dry Neurologic: Oriented X3, Speech NL Head / Eyes: Atraumatic, Normocephalic Upper Extremity / MS: Atraumatic, Full range of motion Interpretation & Diagnostics X-Ray Interpretation Xray Interpretation: IMPRESSION: No visualized acute fracture or dislocation. However, if clinical concern and/or pain persist, short interval imaging followup in 7-10 days is recommended, as occult injury cannot be definitively excluded. Dictated by: Chiara Bynum M.D. on 01/30/2017 at 16:48 Approved by: Chiara Bynum M.D. on 01/30/2017 at 16:49 X-Ray Ordered: Ankle left Interpretation / Wet Read by: Interpret - Radiologist Xray Interpretation: IMPRESSION: No visualized acute fracture or dislocation. However, if clinical concern and/or pain persist, short interval imaging followup in 7-10 days is recommended, as occult injury cannot be definitively excluded. Dictated by: Chiara Bynum M.D. on 01/30/2017 at 16:47 Approved by: Chiara Bynum M.D. on 01/30/2017 at 16:48 X-Ray Ordered: Foot left Interpretation / Wet Read by: Interpret - Radiologist Re-Eval/Medical Decision Re-Evaluation/Progress : Time of Eval: 17:22 Re-Evaluation/Progress Note: Discussed X-ray results and plan for elevation, icing and ibuprofen. Plan for discharge. Patient understands and agrees to plan. All questions were addressed. Counseled Regarding: Diagnosis, Lab results, Need for follow-up, When/why to return to ED Discharge & Departure Impression: Primary Impression: Ankle injury Encounter type: initial encounter Laterality: left Qualified Code: S99.912A - Unspecified injury of left ankle, initial encounter Disposition: Home Discharge Condition All VS Reviewed: Yes Condition: Stable Patient Instructions: Ankle Sprain (GEN), Crutch Instructions (ED) Additional Instructions: Your ankle and foot X-ray was normal and reassuring. There was no evidence of a fracture. You can expect it to be more painful tomorrow and start to bruise. Activity as tolerated by your pain. You can take 400mg of ibuprofen every 8 hours, as needed for pain. You can also ice it where it hurts. Don't leave the ice on for more than 30 minutes, as this can cause irritation of the skin. Try to elevate your leg, higher than your heart. Follow up with your primary care physician next week if you are still experiencing pain or having problems with walking. Return to the emergency department if you develop any new or concerning symptoms. Referrals: Martin Eller MD (PCP) Cris Attestation Portions of this note were transcribed by Mary Wright. I, Dr. Olivarez personally performed the history, physical exam and medical decision-making; I reviewed and confirmed the accuracy of the information in the transcribed note. Signed by: Cris Pineda, 01/30/17 copies to: Martin Eller MD, Kirk H MD Jan 30, 2017 17:13 Niru Wright Jan 30, 2017 17:21
[2017-01-30 17:43] VITALS: BP 118/77; PULSE 80; RESP 16; O2SAT 95
[2017-01-30 17:56] VITALS: BP 118/77; PULSE 80; RESP 16; O2SAT 95
== END 2017-01-30 17:57 | disposition home or self-care (01) ==
LOC: SED 15:47
DX: S99.912A Unspecified injury of left ankle, initial encounter (principal); W01.0XXA Fall on same level from slipping, tripping and stumbling without subsequent striking against object, initial encounter; Y93.9 Activity, unspecified; Y92.009 Unspecified place in unspecified non-institutional (private) residence as the place of occurrence of the external cause; Y99.8 Other external cause status; Z86.73 Personal history of transient ischemic attack (TIA), and cerebral infarction without residual deficits; Z79.82 Long term (current) use of aspirin; Z88.8 Allergy status to other drugs, medicaments and biological substances